=== PATIENT | male | born 1935 | race Hispanic/Latino ===

== ENCOUNTER 2018-06-21 06:15 | Emergency (ER) | payer OTHER ==
--- NOTE | 2018-06-21 06:40 | ER ---
Nurse's Notes [facility] Name: Giovany Heck Age: 83 yrs Sex: Male : 1935 Arrival Date: 06/21/2018 Time: 06:16 Bed 5 Private MD: Yordan Crowder Diagnosis: Encounter for general adult medical examination without abnormal findings Presentation: 06/21 06:20 Presenting complaint: Patient states: that his just a couple of hours fc ago and he is just not feeling right. Family states that they just want him checked out. Transition of care: patient was not received from another setting of care. Onset of symptoms was June 21, 2018 at 04:00. Risk Assessment: Do you want to hurt yourself or someone else? Patient reports no desire to harm self or others. Initial Sepsis Screen: Does the patient meet any 2 criteria? No. Patient's initial sepsis screen is negative. Does the patient have a suspected source of infection? No. Patient's initial sepsis screen is negative. Care prior to arrival: None. 06:20 Method Of Arrival: Wheelchair fc 06:20 Acuity: KWAKU 3 fc Triage Assessment: 06:20 General: Appears in no apparent distress. comfortable, Behavior is calm, cooperative, fc appropriate for age, flat, quiet. Pain: Denies pain. EENT: No deficits noted. Neuro: Level of Consciousness is awake, alert, obeys commands, Oriented to person, place, time, situation, Appropriate for age. Cardiovascular: Denies chest pain. Respiratory: Denies cough, shortness of breath. GI: No deficits noted. : No deficits noted. Derm: Skin is pink, warm \T\ dry. Musculoskeletal: Circulation, motion, and sensation intact. Capillary refill < 3 seconds, Range of motion: intact in all extremities. Historical: - Allergies: 06:33 No Known Allergies; fc - Home Meds: 06:33 cetirizine 10 mg oral tab 1 tab once daily [Active]; lisinopril-hydrochlorothiazide fc 20-12.5 mg Oral tab 1 tab once daily [Active]; magnesium oxide 400 mg Oral tab twice a day [Active]; atorvastatin 40 mg oral tab 1 tab once daily [Active]; glipizide 5 mg oral tab 1 tab 2 times per day [Active]; amlodipine 10 mg tab 1 tab once daily [Active]; aspirin 81 mg Oral chew 1 tab once daily [Active]; clopidogrel 75 mg Oral tab 1 tab once daily [Active]; - PMHx: 06:33 Myocardial infarction; Hypertension; High Cholesterol; Diabetes - NIDDM; fc - PSHx: 06:33 Cholecystectomy; eye surg; fc - Immunization history:: Last tetanus immunization: up to date Flu vaccine is up to date. - Social history:: Smoking status: Patient/guardian denies using tobacco, Patient/guardian denies using alcohol, street drugs. - Ebola Screening: : Patient negative for fever greater than or equal to 101.5 degrees Fahrenheit, and additional compatible Ebola Virus Disease symptoms Patient denies exposure to infectious person Patient denies travel to an Ebola-affected area in the 21 days before illness onset. Screenin:20 Abuse screen: Denies threats or abuse. Nutritional screening: No deficits noted. fc Tuberculosis screening: No symptoms or risk factors identified. Fall Risk Fall in past 12 months (25 points). No secondary diagnosis (0 pts). No IV (0 pts). Ambulatory Aid- Crutches/Cane/Walker (15 pts). Gait- Weak (10 pts.). Mental Status- Overestimates/Forgets Limitations (15 pts.). Total Levy Fall Scale indicates High Risk Score (45 or more points). Fall prevention measures have been instituted. Side Rails Up X 2 Placed Close to Nursing Station Frequent Obs/Assessments Occuring Family Present and informed to notify staff if the need to leave the bedside As available patient and family educated on Fall Prevention Program and Strategies. Assessment: 06:37 General: Appears in no apparent distress. comfortable, obese, Behavior is calm, fc cooperative, appropriate for age, flat, quiet. Pain: Denies pain. Neuro: Level of Consciousness is awake, alert, obeys commands, Oriented to person, place, time, situation, Appropriate for age. Cardiovascular: Denies chest pain, Heart tones S1 S2 Capillary refill < 3 seconds Rhythm is regular. Respiratory: Denies cough, shortness of breath. GI: No deficits noted. : No deficits noted. EENT: No deficits noted. Derm: Skin is pink, warm \T\ dry. Musculoskeletal: Circulation, motion, and sensation intact. Capillary refill < 3 seconds, Range of motion: intact in all extremities. 06:39 Reassessment: Florin SCOTT has gone in to examine pt and talk with family. Pt is pending discharge. Vital Signs: 06:20 BP 136 / 92; Pulse 87; Resp 18; Temp 97.5(O); Pulse Ox 98% on R/A; Weight 77.11 kg (R); fc Height 5 ft. 2 in. (157.48 cm) (R); Pain 0/10; 06:49 BP 144 / 70; Pulse 73; Resp 18; Pulse Ox 97% on R/A; Pain 0/10; fc 06:20 Body Mass Index 31.09 (77.11 kg, 157.48 cm) ED Course: 06:16 Patient arrived in ED. am2 06:17 Matty Shelton DO is Private Physician. am2 06:17 Yordan Crowder MD is Private Physician. am2 06:19 [facility] Mills [facility]. jr8 06:19 Kerwin Zhu MD is Attending Physician. [facility] 06:20 Arm band placed on Patient placed in an exam room, on a stretcher. 06:20 Patient has correct armband on for positive identification. Placed in gown. Bed in low fc position. Call light in reach. Side rails up X 1. desk monitor on. Pulse ox on. NIBP on. 06:20 No provider procedures requiring assistance completed. 06:29 Triage completed. 06:38 Yordan Crowder MD is Referral Physician. jr8 06:50 Patient did not have IV access during this emergency room visit. Administered Medications: No medications were administered Outcome: 06:39 Discharge ordered by . jr8 06:49 Discharged to home ambulatory, with family. 06:49 Condition: good 06:49 Discharge instructions given to patient, family, Instructed on discharge instructions, follow up and referral plans. Demonstrated understanding of instructions, follow-up care, Prescriptions given X none 06:50 Patient left the ED. Signatures: Wilda Chavarria, RN RN Florin Mills PA PA jr8 Jacqueline Mckeon am2
--- NOTE | 2018-06-21 06:40 | EDPHYS ---
Physician Documentation [facility] Name: Giovany Heck Age: 83 yrs Sex: Male : 1935 Arrival Date: 06/21/2018 Time: 06:16 Bed 5 Private MD: Yordan Crowder ED Physician Kerwin Zhu HPI: 06/21 06:49 This 83 yrs old Male presents to ER via Wheelchair with complaints of Doesn't jr8 Feel Right - post family . 06:49 of patient in the hospital early this morning. Family wanted patient kimberly checked out to make sure he is ok. History of OK in past. Patient did not have any symptoms while upstairs and continues to not have any symptoms currently . Severity of symptoms: At their worst the symptoms were very mild in the emergency department the symptoms are unchanged. The patient has not experienced similar symptoms in the past. The patient has not recently seen a physician. Historical: - Allergies: 06:33 No Known Allergies; fc - Home Meds: 06:33 cetirizine 10 mg oral tab 1 tab once daily [Active]; lisinopril-hydrochlorothiazide fc 20-12.5 mg Oral tab 1 tab once daily [Active]; magnesium oxide 400 mg Oral tab twice a day [Active]; atorvastatin 40 mg oral tab 1 tab once daily [Active]; glipizide 5 mg oral tab 1 tab 2 times per day [Active]; amlodipine 10 mg tab 1 tab once daily [Active]; aspirin 81 mg Oral chew 1 tab once daily [Active]; clopidogrel 75 mg Oral tab 1 tab once daily [Active]; - PMHx: 06:33 Myocardial infarction; Hypertension; High Cholesterol; Diabetes - NIDDM; fc - PSHx: 06:33 Cholecystectomy; eye surg; fc - Immunization history:: Last tetanus immunization: up to date Flu vaccine is up to date. - Social history:: Smoking status: Patient/guardian denies using tobacco, Patient/guardian denies using alcohol, street drugs. - Ebola Screening: : Patient negative for fever greater than or equal to 101.5 degrees Fahrenheit, and additional compatible Ebola Virus Disease symptoms Patient denies exposure to infectious person Patient denies travel to an Ebola-affected area in the 21 days before illness onset. ROS: 06:49 Eyes: Negative for injury, pain, redness, and discharge, ENT: Negative for injury, jr8 pain, and discharge, Neck: Negative for injury, pain, and swelling, Cardiovascular: Negative for chest pain, palpitations, and edema, Respiratory: Negative for shortness of breath, cough, wheezing, and pleuritic chest pain, Abdomen/GI: Negative for abdominal pain, nausea, vomiting, diarrhea, and constipation, Back: Negative for injury and pain, MS/Extremity: Negative for injury and deformity, Skin: Negative for injury, rash, and discoloration, Neuro: Negative for headache, weakness, numbness, tingling, and seizure. Exam: 06:49 Eyes: Pupils equal round and reactive to light, extra-ocular motions intact. Lids and jr8 lashes normal. Conjunctiva and sclera are non-icteric and not injected. Cornea within normal limits. Periorbital areas with no swelling, redness, or edema. ENT: Nares patent. No nasal discharge, no septal abnormalities noted. Tympanic membranes are normal and external auditory canals are clear. Oropharynx with no redness, swelling, or masses, exudates, or evidence of obstruction, uvula midline. Mucous membranes moist. Neck: Trachea midline, no thyromegaly or masses palpated, and no cervical lymphadenopathy. Supple, full range of motion without nuchal rigidity, or vertebral point tenderness. No Meningismus. Cardiovascular: Regular rate and rhythm with a normal S1 and S2. No gallops, murmurs, or rubs. Normal PMI, no JVD. No pulse deficits. Respiratory: Lungs have equal breath sounds bilaterally, clear to auscultation and percussion. No rales, rhonchi or wheezes noted. No increased work of breathing, no retractions or nasal flaring. Abdomen/GI: Soft, non-tender, with normal bowel sounds. No distension or tympany. No guarding or rebound. No evidence of tenderness throughout. Back: No spinal tenderness. No costovertebral tenderness. Full range of motion. Skin: Warm, dry with normal turgor. Normal color with no rashes, no lesions, and no evidence of cellulitis. MS/ Extremity: Pulses equal, no cyanosis. Neurovascular intact. Full, normal range of motion. Neuro: Awake and alert, GCS 15, oriented to person, place, time, and situation. Cranial nerves II-XII grossly intact. Motor strength 5/5 in all extremities. Sensory grossly intact. Cerebellar exam normal. Normal gait. 06:49 Eyes: Pupils equal round and reactive to light, extra-ocular motions intact. Lids and lashes normal. Conjunctiva and sclera are non-icteric and not injected. Cornea within normal limits. Periorbital areas with no swelling, redness, or edema. ENT: Nares patent. No nasal discharge, no septal abnormalities noted. Tympanic membranes are normal and external auditory canals are clear. Oropharynx with no redness, swelling, or masses, exudates, or evidence of obstruction, uvula midline. Mucous membranes moist. Neck: Trachea midline, no thyromegaly or masses palpated, and no cervical lymphadenopathy. Supple, full range of motion without nuchal rigidity, or vertebral point tenderness. No Meningismus. Cardiovascular: Regular rate with a normal S1 and S2. No gallops, murmurs, or rubs. Normal PMI, no JVD. No pulse deficits. Respiratory: Lungs have equal breath sounds bilaterally, clear to auscultation and percussion. No rales, rhonchi or wheezes noted. No increased work of breathing, no retractions or nasal flaring. Abdomen/GI: Soft, non-tender, with normal bowel sounds. No distension or tympany. No guarding or rebound. No evidence of tenderness throughout. Back: No spinal tenderness. No costovertebral tenderness. Full range of motion. Skin: Warm, dry with normal turgor. Normal color with no rashes, no lesions, and no evidence of cellulitis. MS/ Extremity: Pulses equal, no cyanosis. Neurovascular intact. Full, normal range of motion. Neuro: Awake and alert, GCS 15, oriented to person, place, time, and situation. Cranial nerves II-XII grossly intact. Motor strength 5/5 in all extremities. Sensory grossly intact. Cerebellar exam normal. Normal gait. Vital Signs: 06:20 BP 136 / 92; Pulse 87; Resp 18; Temp 97.5(O); Pulse Ox 98% on R/A; Weight 77.11 kg (R); fc Height 5 ft. 2 in. (157.48 cm) (R); Pain 0/10; 06:49 BP 144 / 70; Pulse 73; Resp 18; Pulse Ox 97% on R/A; Pain 0/10; fc 06:20 Body Mass Index 31.09 (77.11 kg, 157.48 cm) MDM: 06:21 Patient medically screened. [facility] 06:36 Data reviewed: vital signs, nurses notes, EKG, and as a result, I will discharge jr8 patient. Data interpreted: Pulse oximetry: on room air is 98 %. Interpretation: normal. Counseling: I had a detailed discussion with the patient and/or guardian regarding: the historical points, exam findings, and any diagnostic results supporting the discharge/admit diagnosis, the need for outpatient follow up, a family practitioner, to return to the emergency department if symptoms worsen or persist or if there are any questions or concerns that arise at home. ED course: Patient lost his this morning due to illness. Family wanted patient checked out. Other then emotional distress patient was without complaint before coming down to ED and while in ED. Gave family and patient s/s to look out for over the next several days. Close observation at home. If anything were to change or worsen to come back to ED . 06/21 06:36 Order name: EKG - Nurse/Tech; Complete Time: 06:37 jr8 Administered Medications: No medications were administered Disposition: 11:13 Co-signature as Attending Physician, Kerwin Zhu MD I agree with the assessment and [facility] plan of care. Disposition: 06/21/18 06:39 Discharged to Home. Impression: Encounter for general adult medical examination without abnormal findings. - Condition is Stable. - Discharge Instructions: Nonspecific Chest Pain, Health Maintenance, Male, Chest Pain Observation, Preventive Care 65 Years and Older, Male. - Medication Reconciliation Form, Thank You Letter, Antibiotic Education, Prescription Opioid Use form. - Follow up: Yordan Crowder MD; When: 1 - 2 days; Reason: Recheck today's complaints, Continuance of care, Re-evaluation by your physician. - Problem is new. - Symptoms are unchanged. Signatures: Kerwin Zhu MD MD cha Chretien, Felicia, RN RN Florin Mills PA PA jr8 Corrections: (The following items were deleted from the chart) 06:50 06:39 06/21/2018 06:39 Discharged to Home. Impression: Encounter for general adult medical examination without abnormal findings. Condition is Stable. Forms are Medication Reconciliation Form, Thank You Letter, Antibiotic Education, Prescription Opioid Use. Follow up: Yordan Crowder; When: 1 - 2 days; Reason: Recheck today's complaints, Continuance of care, Re-evaluation by your physician. Problem is new. Symptoms are unchanged. jr8
[2018-06-21 06:59] VITALS: BP 144/70; TEMP 97.5; O2SAT 97
--- NOTE | 2018-06-21 12:35 | EKG ---
Test Date: 2018-06-21 Test Time: 06:27:48 Sap Bpc Architect: NATACHA MEASUREMENT RESULTS: Intervals: Rate: 72 NM: 216 QRSD: 158 QT: 448 QTc: 490 Alna: P: 55 NM: 216 QRS: -27 T: 128 INTERPRETIVE STATEMENTS: Sinus rhythm with marked sinus arrhythmia with 1st degree AV block Left bundle branch block Abnormal ECG Compared to ECG 08/13/2016 02:23:06 Atrial premature complex(es) no longer present Left-axis deviation no longer present Electronically Signed On 06-21-18 12:33:50 [facility] [employer] by Evin Donato
== END 2018-06-21 06:50 | disposition home or self-care (01) ==
LOC: ER 06:15
DX: Z00.00 Encounter for general adult medical examination without abnormal findings (principal); I10 Essential (primary) hypertension; E11.9 Type 2 diabetes mellitus without complications; I25.2 Old myocardial infarction; E78.00 Pure hypercholesterolemia, unspecified; Z79.82 Long term (current) use of aspirin
CPT/HCPCS: 93005; 99284

== ENCOUNTER 2019-01-01 12:13 | Observation (INO) | payer OTHER ==
--- OUTSIDE RECORDS SUMMARY | 2019-01-01 12:15 | XMS REPORT | Clinical Summary ---
:[address] [facility] Address [address] [place] [address] Care Team Providers Name Role Phone Yordan Crowder Brandonherve Primary Care Provider Allergies No Known Allergies Medications Medication Sig Dispensed Refills Start Date End Date Status clopidogrel (PLAVIX) Take 75 mg by 0 Active 75 mg tablet mouth daily. magnesium oxide Take 400 mg by 0 Active (MAG-OX) 400 mg tablet mouth 2 (two) times daily. amLODIPine (NORVASC) Take 10 mg by 0 Active 10 MG tablet mouth daily. aspirin 81 MG EC Take 81 mg by 0 Active tablet mouth nightly. atorvastatin (LIPITOR) Take 40 mg by 0 Active 40 MG tablet mouth daily. glipiZIDE (GLUCOTROL) Take 5 mg by mouth 0 Active 5 MG tablet 2 (two) times daily before meals. lisinopril-hydroCHLORO Take 1 tablet by 0 Active thiazide mouth daily. (PRINZIDE,ZESTORETIC) 20-12.5 mg per tablet nitroglycerin Place 0.3 mg under 0 Active (NITROSTAT) 0.3 MG SL the tongue every 5 tablet (five) minutes as needed for Chest pain Put 1 pill under tongue every 5min as needed for chest pain.No more than 3 doses in 15min.Call 911 if pain is unrelieved 5min after 1st dose . nebivolol 20 mg Tab Take 1 tablet (20 90 tablet 0 08/25/2016 Active mg total) by mouth daily. Active Problems Problem Noted Date Cirrhosis 08/22/2016 Acute gangrenous cholecystitis 08/22/2016 Obesity 08/22/2016 Atrial tachycardia 08/22/2016 Diastolic CHF 08/19/2016 CAD (coronary artery disease) 08/19/2016 Acute cholecystitis 08/18/2016 Social History Tobacco Use Types Packs/Day Years Used Date Never Smoker Sex Assigned at Date Recorded Not on file Job Start Date Occupation Industry Not on file Not on file Not on file Travel History Travel Start Travel End No recent travel history available. Last Filed Vital Signs Not on file Plan of Treatment Not on file Results Not on fileafter 12/31/2017 Insurance Payer Benefit Plan / Group Subscriber ID Type Phone Address [employer] xxxxxxxxx Maps Contracted Advance Directives For more information, please contact:[address] [phone] Code Status Date Activated Date Inactivated Comments Full Code 08/18/2016 10:20 PM 08/25/2016 5:19 PM This code status was determined by: Patient
--- OUTSIDE RECORDS SUMMARY | 2019-01-01 12:17 | XMS REPORT ---
:1935 Author Organization [facility] Address [address] [place] [address] Dr. Montalvo [address] [place] [id number] Care Team Providers Name Role Phone JOANA SNOWDEN Unavailable Unavailable Problems This patient has no known problems. Allergies, Adverse Reactions, Alerts This patient has no known allergies or adverse reactions. Medications This patient has no known medications. Results Test Description Test Time Test Comments Text Results Atomic Results Result Comments AFB CULTURE + SMEAR 2016-10-05 17:20:00 Test Item Value Reference Range Comments CULTURE (BEAKER) (test tutv=6732) No acid-fast bacilli isolated in 42 days AFB SMEAR (BEAKER) (test jhtw=693) No acid fast bacilli seen FUNGUS CULTURE + [id number] 23:18:00 Test Item Value Reference Range Comments CULTURE (BEAKER) (test No fungus isolated in 28 days ovlr=9528) FUNGUS SMEAR (BEAKER) (test No fungi seen qcls=8844) FUNGUS CULTURE + [id number] 23:18:00 Test Item Value Reference Range Comments CULTURE (BEAKER) (test No fungus isolated in 28 days mffv=3452) FUNGUS SMEAR (BEAKER) (test No fungi seen axjg=2918) ANAEROBIC [id number] 05:12:00 Test Item Value Reference Range Comments CULTURE (BEAKER) (test ezyt=2463) No anaerobes isolated ANAEROBIC [id number] 05:12:00 Test Item Value Reference Range Comments CULTURE (BEAKER) (test ommz=3627) No anaerobes isolated BLOOD [id number] 15:51:00 Test Item Value Reference Range Comments CULTURE (BEAKER) (test kipv=0612) No growth in 5 days BLOOD [id number] 15:51:00 Test Item Value Reference Range Comments CULTURE (BEAKER) (test gymu=9823) No growth in 5 days SURGICALLY OBTAINED CULTURE + GRAM [id number] 15:09:00 Test Item Value Reference Range Comments CULTURE (BEAKER) (test No growth guzx=7464) GRAM STAIN RESULT (BEAKER) 1+ WBCs (test ijsp=7050) GRAM STAIN RESULT (BEAKER) 1+ gram positive cocci in (test tcqr=21097) chains and pairs SURGICALLY OBTAINED CULTURE + GRAM [id number] 15:07:00 Test Item Value Reference Range Comments CULTURE (BEAKER) (test No growth eiuf=7106) GRAM STAIN RESULT (BEAKER) 1+ WBCs (test ejgt=2033) GRAM STAIN RESULT (BEAKER) 1+ gram positive cocci in (test mnbg=06105) chains POCT-GLUCOSE [id number] 11:50:00 Test Item Value Reference Range Comments POC-GLUCOSE METER (BEAKER) 226 mg/dL 70-110 TESTED AT [facility] [address] (test isnm=2187) [facility] [address] TISSUE [id number] 09:30:00Surgical Pathology Report Case: [id number] Authorizing Provider: Kwaku Sánchez MD Ordering Provider: Kwaku Sánchez MD OrderingLocation: [facility] Collected: 08/22/2016 1142 Service Pathologist: Otoniel Larsen MD Received: 08/23/2016 0821 Specimens: A) - Gallbladder B) - Biopsy, Liver, RIGHT HEPATIC LOBE A. GALLBLADDER, CHOLECYSTECTOMY: - ACUTE AND CHRONIC CHOLECYSTITIS - CHOLELITHIASISB. LIVER, BIOPSY: - FIBROSIS, STAGE 3-4 - MILD STEATOSIS, MACROVESICULAR TYPE - NO DEFINITIVE BALLOONING IDENTIFIED - MILD LYMPHOPLASMOCYTIC SEPTAL INFLAMMATION WITH MINIMAL INTERFACE INFLAMMATION - MILD INCREASE IN HEPATOCYTE IRON - NEGATIVE FORCARCINOMA Signing Pathologist Direct Phone Line: [phone] cholecystitisA. GallbladderB. Right hepatic lobe liver biopsySpecimen is received in two containers of formalinboth labeled with the patient's information.Specimen A: Labeled "gallbladder" consists of an intact gallbladder measuring 7.6 x 5 cm with a gallbladder wall thickness up to 0.6 cm. The gallbladder lumen is filled with green thick fluid and multiple dark- green smooth stones measuring up to 0.5 cm. The mucosa is loyd-red and velvety with focal areas of ulceration. There are no distinct masses or lymph node tissue present.Section code: A1, margin en face; A2, gallbladder wall.Specimen B : Labeled "right hepatic lobe liver biopsy" consists of two liver core biopsies measuring 1.8 and 1.9 cm in length, submitted entirely in B1. CG/Nelda. Performed.B. Section shows liver parenchyma with bridging fibrosis and rare regenerative nodule formation as seen by trichrome/reticulin stains (stage 3-4) . The portal tracts have septal inflammation with mild interface inflammation, composed of lymphocytes and rare plasma cells. There is mild macrovesicular steatosis without ballooning degeneration or Nancy Denk hyaline. No hyaline globules are seen on PAS with diastase stain. Iron stain shows mildly increased staining (1+) in the hepatocytes and in the kupffer cells. No dysplastic nodules or carcinoma is seen.POCT-GLUCOSE [id number] 08:08:00 Test Item Value Reference Range Comments POC-GLUCOSE METER (BEAKER) 142 mg/dL 70-110 TESTED AT [facility] [address] [facility] (test rdhg=8574) [facility] [address] URIC [id number] 06:15:00 Test Item Value Reference Range Comments URIC ACID (BEAKER) (test bwtt=231) 5.1 mg/dL 2.6-7.2 [id number] 05:37:00 Test Item Value Reference Range Comments PHOSPHORUS (BEAKER) (test gsno=360) 3.2 mg/dL 2.3-4.7 [id number] 05:37:00 Test Item Value Reference Range Comments MAGNESIUM (BEAKER) (test qouk=480) 1.7 mg/dL 1.6-2.6 COMPREHENSIVE METABOLIC [id number] 05:37:00 Test Item Value Reference Range Comments TOTAL PROTEIN (BEAKER) 5.9 gm/dL 6.0-8.3 (test zfda=758) ALBUMIN (BEAKER) (test 2.8 g/dL 3.5-5.0 xkrk=4502) ALKALINE PHOSPHATASE 74 U/L 40-150 (BEAKER) (test mrwc=967) BILIRUBIN TOTAL (BEAKER) 0.5 mg/dL 0.2-1.2 (test hxpx=663) SODIUM (BEAKER) (test 140 meq/L 136-145 kwxq=413) POTASSIUM (BEAKER) (test 3.4 meq/L 3.5-5.1 ivkf=557) CHLORIDE (BEAKER) (test 105 meq/L 98-107 rfnw=276) CO2 (BEAKER) (test 25 meq/L 22-29 hqvr=000) BLOOD UREA NITROGEN 19 mg/dL 7-21 (BEAKER) (test kczl=090) CREATININE (BEAKER) (test 1.43 mg/dL 0.57-1.25 gugo=969) GLUCOSE RANDOM (BEAKER) 134 mg/dL 70-105 (test kooe=872) CALCIUM (BEAKER) (test 8.7 mg/dL 8.4-10.2 clmc=594) AST (SGOT) (BEAKER) (test 39 U/L 5-34 gnph=511) ALT (SGPT) (BEAKER) (test 35 U/L 6-55 wzuc=437) EGFR (BEAKER) (test 48 mL/min/1.73 sq m ESTIMATED GFR IS NOT erur=5654) ACCURATE CREATININE CLEARANCE IN PREDICTING GLOMERULAR FILTRATION RATE. ESTIMATED GFR IS NOT APPLICABLE FOR DIALYSIS PATIENTS. CBC W/PLT COUNT & AUTO [id number] 05:19:00 Test Item Value Reference Range Comments WHITE BLOOD CELL COUNT (BEAKER) (test ivio=501) 12.0 K/ L 4.0-10.0 RED BLOOD CELL COUNT (BEAKER) (test fjpw=084) 4.22 M/ L 4.20-5.80 HEMOGLOBIN (BEAKER) (test svdc=417) 12.2 GM/DL 13.0-16.8 HEMATOCRIT (BEAKER) (test yapl=922) 37.5 % 40.0-50.0 MEAN CORPUSCULAR VOLUME (BEAKER) (test jyyo=747) 88.9 fL 82.0-98.0 MEAN CORPUSCULAR HEMOGLOBIN (BEAKER) (test 29.0 pg 27.0-33.0 nvjp=687) MEAN CORPUSCULAR HEMOGLOBIN CONC (BEAKER) (test 32.6 GM/DL 32.0-36.0 nbtq=023) RED CELL DISTRIBUTION WIDTH (BEAKER) (test 13.2 % 10.3-14.2 ymoz=155) PLATELET COUNT (BEAKER) (test bpug=530) 379 K/CU MM 150-430 MEAN PLATELET VOLUME (BEAKER) (test ueyt=854) 7.1 fL 6.5-10.5 NUCLEATED RED BLOOD CELLS (BEAKER) (test 0 /100 WBC 0-0 xuqe=121) NEUTROPHILS RELATIVE PERCENT (BEAKER) (test 83 % xbjv=094) LYMPHOCYTES RELATIVE PERCENT (BEAKER) (test 9 % fycg=235) MONOCYTES RELATIVE PERCENT (BEAKER) (test 5 % jyqw=569) EOSINOPHILS RELATIVE PERCENT (BEAKER) (test 3 % gubr=609) BASOPHILS RELATIVE PERCENT (BEAKER) (test 0 % ugmb=768) NEUTROPHILS ABSOLUTE COUNT (BEAKER) (test 9.97 K/ L 1.80-8.00 uzid=109) LYMPHOCYTES ABSOLUTE COUNT (BEAKER) (test 1.06 K/ L 1.48-4.50 waws=236) MONOCYTES ABSOLUTE COUNT (BEAKER) (test 0.63 K/ L 0.00-1.30 zyah=554) EOSINOPHILS ABSOLUTE COUNT (BEAKER) (test 0.31 K/ L 0.00-0.50 ripj=352) BASOPHILS ABSOLUTE COUNT (BEAKER) (test 0.03 K/ L 0.00-0.20 iign=533) 0.00POCT-GLUCOSE [id number] 21:05:00 Test Item Value Reference Range Comments POC-GLUCOSE METER (BEAKER) 173 mg/dL 70-110 TESTED AT [facility] [address] [facility] (test fcqo=5565) [facility] [address] URINALYSIS W/ [id number] 16:26:00 Test Item Value Reference Range Comments COLOR (BEAKER) (test nbjl=479) Light Yellow CLARITY (BEAKER) (test enrn=287) Clear SPECIFIC GRAVITY UA (BEAKER) (test uyzg=463) 1.006 1.001-1.035 PH UA (BEAKER) (test dzsx=965) 6.0 5.0-8.0 PROTEIN UA (BEAKER) (test txfq=121) Negative Negative GLUCOSE UA (BEAKER) (test inte=272) Negative Negative KETONES UA (BEAKER) (test fkrg=735) Negative Negative BILIRUBIN UA (BEAKER) (test brvr=170) Negative Negative BLOOD UA (BEAKER) (test zhsg=005) Negative Negative NITRITE UA (BEAKER) (test mxud=814) Negative Negative LEUKOCYTE ESTERASE UA (BEAKER) (test yrpd=147) Negative Negative UROBILINOGEN UA (BEAKER) (test xjmf=811) 0.2 mg/dL 0.2-1.0 RBC UA (BEAKER) (test ywab=836) 1 /HPF WBC UA (BEAKER) (test nsfc=030) 1 /HPF SOURCE(BEAKER) (test fuqg=3713) Urine, Voided CREATININE, RANDOM [id number] 16:09:00 Test Item Value Reference Range Comments CREATININE URINE (BEAKER) (test eoez=397) 32.5 mg/dL Reference Range: No NormalsPROTEIN, RANDOM [id number] 16:09:00 Test Item Value Reference Range Comments PROTEIN, URINE (BEAKER) (test eclj=2530) 7 mg/dL 0-14 SODIUM, RANDOM [id number] 16:09:00 Test Item Value Reference Range Comments SODIUM URINE (BEAKER) (test pztm=460) 83 meq/L Reference Range: No NormalsBASIC METABOLIC [id number] 14:13:00 Test Item Value Reference Range Comments SODIUM (BEAKER) (test 142 meq/L 136-145 ejgm=649) POTASSIUM (BEAKER) (test 3.7 meq/L 3.5-5.1 nzkm=346) CHLORIDE (BEAKER) (test 107 meq/L 98-107 qxvz=184) CO2 (BEAKER) (test 26 meq/L 22-29 ogja=143) BLOOD UREA NITROGEN 21 mg/dL 7-21 (BEAKER) (test ivbm=508) CREATININE (BEAKER) (test 1.61 mg/dL 0.57-1.25 mqyd=364) GLUCOSE RANDOM (BEAKER) 155 mg/dL 70-105 (test gmkr=023) CALCIUM (BEAKER) (test 8.7 mg/dL 8.4-10.2 qhbj=928) EGFR (BEAKER) (test 41 mL/min/1.73 sq m ESTIMATED GFR IS NOT elbp=2734) ACCURATE CREATININE CLEARANCE IN PREDICTING GLOMERULAR FILTRATION RATE. ESTIMATED GFR IS NOT APPLICABLE FOR DIALYSIS PATIENTS. BLOOD [id number] 13:27:00 Test Item Value Reference Range Comments CULTURE (BEAKER) (test abnu=4721) No growth in 5 days BLOOD [id number] 13:27:00 Test Item Value Reference Range Comments CULTURE (BEAKER) (test wxvf=5445) No growth in 5 days POCT-GLUCOSE [id number] 12:25:00 Test Item Value Reference Range Comments POC-GLUCOSE METER (AKER) 203 mg/dL 70-110 TESTED AT [address] (test jfju=4533) [place] [address] POCT-GLUCOSE [id number] 08:54:00 Test Item Value Reference Range Comments POC-GLUCOSE METER (BEAKER) 146 mg/dL 70-110 TESTED AT [address] (test trvn=9497) [place] [address] POCT-GLUCOSE [id number] 05:23:00 Test Item Value Reference Range Comments POC-GLUCOSE METER (BEAKER) 147 mg/dL 70-110 TESTED AT [address] (test cdvw=5976) [place] [address] TROPONIN [id number] 04:19:00 Test Item Value Reference Range Comments TROPONIN I (AKER) (test xcap=230) 0.11 ng/mL 0.00-0.03 Effective 03/05/2014: Reference Range ChangeNew: 0.00-0.03 Previous 0.00- 0.15Troponin I (TnI) levels must be interpreted in the context of the presenting symptoms and the clinical findings. Elevated TnI levels indicate myocardial damage, but are not specific for ischemic heart disease. Elevated TnI levels are seen in patients with other cardiac conditions (including myocarditis and congestive heartfailure), and slight TnI elevations occur in patients with other conditions, including sepsis, renalfailure, acidosis, acute neurological disease, and persistent tachyarrhythmia.CBC (HEMOGRAM ONLY) 04:19:00 Test Item Value Reference Range Comments WHITE BLOOD CELL COUNT (BEAKER) (test jqaj=505) 16.1 K/ L 4.0-10.0 RED BLOOD CELL COUNT (BEAKER) (test npgw=765) 4.12 M/ L 4.20-5.80 HEMOGLOBIN (BEAKER) (test nnkg=747) 12.1 GM/DL 13.0-16.8 HEMATOCRIT (BEAKER) (test uvbv=858) 36.0 % 40.0-50.0 MEAN CORPUSCULAR VOLUME (BEAKER) (test wuco=944) 87.4 fL 82.0-98.0 MEAN CORPUSCULAR HEMOGLOBIN (BEAKER) (test 29.2 pg 27.0-33.0 mrzp=875) MEAN CORPUSCULAR HEMOGLOBIN CONC (BEAKER) (test 33.5 GM/DL 32.0-36.0 vtbm=605) RED CELL DISTRIBUTION WIDTH (BEAKER) (test 14.3 % 10.3-14.2 wxem=675) PLATELET COUNT (BEAKER) (test nsil=297) 390 K/CU MM 150-430 MEAN PLATELET VOLUME (BEAKER) (test qpmj=205) 7.0 fL 6.5-10.5 NUCLEATED RED BLOOD CELLS (BEAKER) (test 0 /100 WBC 0-0 pzvu=607) 0.000.540.000.000.[id number] 04:11:00 Test Item Value Reference Range Comments PHOSPHORUS (BEAKER) (test byzb=589) 2.1 mg/dL 2.3-4.7 [id number] 04:11:00 Test Item Value Reference Range Comments MAGNESIUM (BEAKER) (test rydv=203) 2.4 mg/dL 1.6-2.6 BASIC METABOLIC [id number] 04:11:00 Test Item Value Reference Range Comments SODIUM (BEAKER) (test 140 meq/L 136-145 icuj=444) POTASSIUM (BEAKER) (test 3.9 meq/L 3.5-5.1 jbxd=403) CHLORIDE (BEAKER) (test 106 meq/L 98-107 hotx=288) CO2 (BEAKER) (test 26 meq/L 22-29 mbfh=200) BLOOD UREA NITROGEN 22 mg/dL 7-21 (BEAKER) (test jsja=067) CREATININE (BEAKER) (test 1.69 mg/dL 0.57-1.25 tiqe=646) GLUCOSE RANDOM (BEAKER) 144 mg/dL 70-105 (test nzcw=783) CALCIUM (BEAKER) (test 8.5 mg/dL 8.4-10.2 qgsu=498) EGFR (BEAKER) (test 39 mL/min/1.73 sq m ESTIMATED GFR IS NOT lyeh=8440) ACCURATE CREATININE CLEARANCE IN PREDICTING GLOMERULAR FILTRATION RATE. ESTIMATED GFR IS NOT APPLICABLE FOR DIALYSIS PATIENTS. POCT-GLUCOSE [id number] 00:24:00 Test Item Value Reference Range Comments POC-GLUCOSE METER (BEAKER) 212 mg/dL 70-110 TESTED AT [address] (test imsa=3297) [place] [address] TROPONIN [id number] 18:52:00 Test Item Value Reference Range Comments TROPONIN I (BEAKER) (test mlal=223) 0.13 ng/mL 0.00-0.03 Effective 03/05/2014: Reference Range ChangeNew: 0.00-0.03 Previous 0.00- 0.15Troponin I (TnI) levels must be interpreted in the context of the presenting symptoms and the clinical findings. Elevated TnI levels indicate myocardial damage, but are not specific for ischemic heart disease. Elevated TnI levels are seen in patients with other cardiac conditions (including myocarditis and congestive heartfailure), and slight TnI elevations occur in patients with other conditions, including sepsis, renalfailure, acidosis, acute neurological disease, and persistent tachyarrhythmia.POCT-GLUCOSE [id number] 16:34:00 Test Item Value Reference Range Comments POC-GLUCOSE METER (BEAKER) 228 mg/dL 70-110 TESTED AT [address] (test fvrh=6139) [place] [address] SPIN/CONCENTRATION [id number] 16:03:00 Test Item Value Reference Range Comments CONCENTRATION CHARGED (BEAKER) (test tivx=9410) Done TROPONIN [id number] 15:38:00 Test Item Value Reference Range Comments TROPONIN I (BEAKER) (test dcmy=823) 0.19 ng/mL 0.00-0.03 Effective 03/05/2014: Reference Range ChangeNew: 0.00-0.03 Previous 0.00- 0.15Troponin I (TnI) levels must be interpreted in the context of the presenting symptoms and the clinical findings. Elevated TnI levels indicate myocardial damage, but are not specific for ischemic heart disease. Elevated TnI levels are seen in patients with other cardiac conditions (including myocarditis and congestive heartfailure), and slight TnI elevations occur in patients with other conditions, including sepsis, renalfailure, acidosis, acute neurological disease, and persistent tachyarrhythmia.[id number] 13:44: 00 Test Item Value Reference Range Comments MAGNESIUM (BEAKER) (test cuud=825) 1.2 mg/dL 1.6-2.6 POCT-GLUCOSE [id number] 12:40:00 Test Item Value Reference Range Comments POC-GLUCOSE METER (BEAKER) 150 mg/dL 70-110 TESTED AT [facility] [address] [facility] (test pfxs=8225) [facility] [address] URINE [id number] 11:31:00 Test Item Value Reference Range Comments CULTURE (BEAKER) (test owqj=2272) No growth TROPONIN [id number] 10:30:00 Test Item Value Reference Range Comments TROPONIN I (BEAKER) (test owtt=320) 0.22 ng/mL 0.00-0.03 Effective 03/05/2014: Reference Range ChangeNew: 0.00-0.03 Previous 0.00- 0.15Troponin I (TnI) levels must be interpreted in the context of the presenting symptoms and the clinical findings. Elevated TnI levels indicate myocardial damage, but are not specific for ischemic heart disease. Elevated TnI levels are seen in patients with other cardiac conditions (including myocarditis and congestive heartfailure), and slight TnI elevations occur in patients with other conditions, including sepsis, renalfailure, acidosis, acute neurological disease, and persistent tachyarrhythmia.CREATINE KINASE (CK), TOTAL AND [id number] 09:38:00 Test Item Value Reference Range Comments CREATINE KINASE TOTAL (BEAKER) (test ijjy=488) 65 U/L 29-200 CREATINE KINASE-MB (BEAKER) (test hohh=267) 3.8 ng/mL 0.0-6.6 CREATINE KINASE-MB INDEX (BEAKER) (test tlss=193) 5.8 % Effective 03/05/2014: CK-MB Reference Range ChangeNew: 0.0-6.6 Previous: 0.0- 4.9CK-MB Reference Range:<6.7 Normal6.7-10.0 Borderline>10.0 AbnormalVANCOMYCIN LEVEL, [id number] 09:29:00 Test Item Value Reference Range Comments VANCOMYCIN TROUGH (BEAKER) (test tyxk=113) 19.1 ug/mL 10.0-20.0 30 mins prior to 4th dose. Hold next vanc dose if levels greater than 20.POCT- GLUCOSE [id number] 06:24:00 Test Item Value Reference Range Comments POC-GLUCOSE METER (BEAKER) 120 mg/dL 70-110 TESTED AT [facility] [address] [facility] (test bvli=7426) [facility] [address] [id number] 04:31:00 Test Item Value Reference Range Comments PHOSPHORUS (BEAKER) (test rzoi=317) 3.4 mg/dL 2.3-4.7 [id number] 04:31:00 Test Item Value Reference Range Comments MAGNESIUM (BEAKER) (test ioms=754) 1.2 mg/dL 1.6-2.6 BASIC METABOLIC [id number] 04:31:00 Test Item Value Reference Range Comments SODIUM (BEAKER) (test 141 meq/L 136-145 hvvr=399) POTASSIUM (BEAKER) (test 4.1 meq/L 3.5-5.1 nlon=445) CHLORIDE (BEAKER) (test 108 meq/L 98-107 xhqw=669) CO2 (BEAKER) (test 25 meq/L 22-29 pbct=476) BLOOD UREA NITROGEN 19 mg/dL 7-21 (BEAKER) (test dnsd=569) CREATININE (BEAKER) (test 1.12 mg/dL 0.57-1.25 snvx=965) GLUCOSE RANDOM (BEAKER) 132 mg/dL 70-105 (test zrta=051) CALCIUM (BEAKER) (test 8.3 mg/dL 8.4-10.2 lolb=737) EGFR (BEAKER) (test 63 mL/min/1.73 sq m ESTIMATED GFR IS NOT ogih=7149) ACCURATE CREATININE CLEARANCE IN PREDICTING GLOMERULAR FILTRATION RATE. ESTIMATED GFR IS NOT APPLICABLE FOR DIALYSIS PATIENTS. HEPATIC FUNCTION [id number] 04:31:00 Test Item Value Reference Range Comments TOTAL PROTEIN (BEAKER) (test mrcq=254) 5.4 gm/dL 6.0-8.3 ALBUMIN (BEAKER) (test eysd=1066) 2.6 g/dL 3.5-5.0 BILIRUBIN TOTAL (BEAKER) (test ptkk=438) 0.7 mg/dL 0.2-1.2 BILIRUBIN DIRECT (BEAKER) (test pqks=463) 0.4 mg/dL 0.1-0.5 ALKALINE PHOSPHATASE (BEAKER) (test mtju=311) 55 U/L 40-150 AST (SGOT) (BEAKER) (test ogpi=270) 93 U/L 5-34 ALT (SGPT) (BEAKER) (test uksg=100) 43 U/L 6-55 CBC (HEMOGRAM ONLY)2016-08-23 03:52:00 Test Item Value Reference Range Comments WHITE BLOOD CELL COUNT (BEAKER) (test eldo=292) 16.0 K/ L 4.0-10.0 RED BLOOD CELL COUNT (BEAKER) (test vrvy=490) 3.93 M/ L 4.20-5.80 HEMOGLOBIN (BEAKER) (test vous=448) 11.9 GM/DL 13.0-16.8 HEMATOCRIT (BEAKER) (test xmtw=104) 34.9 % 40.0-50.0 MEAN CORPUSCULAR VOLUME (BEAKER) (test hovw=675) 88.9 fL 82.0-98.0 MEAN CORPUSCULAR HEMOGLOBIN (BEAKER) (test 30.2 pg 27.0-33.0 trrm=505) MEAN CORPUSCULAR HEMOGLOBIN CONC (BEAKER) (test 34.0 GM/DL 32.0-36.0 qodw=675) RED CELL DISTRIBUTION WIDTH (BEAKER) (test 13.5 % 10.3-14.2 bhpn=407) PLATELET COUNT (BEAKER) (test lplk=636) 329 K/CU MM 150-430 MEAN PLATELET VOLUME (BEAKER) (test lsfu=222) 6.9 fL 6.5-10.5 NUCLEATED RED BLOOD CELLS (BEAKER) (test 0 /100 WBC 0-0 juzu=066) 0.00BODY FLUID CULTURE + GRAM [id number] 01:04:00 Test Item Value Reference Range Comments CULTURE ([facility]) (test No growth jbhr=3714) GRAM STAIN RESULT (AKER) 4+ WBCs (test cgce=0548) GRAM STAIN RESULT (AKER) <1+ gram positive coccobacilli (test izny=62801) CREATINE KINASE (CK), TOTAL AND [id number] 00:15:00 Test Item Value Reference Range Comments CREATINE KINASE TOTAL (BEAKER) (test qbgk=177) 59 U/L 29-200 CREATINE KINASE-MB (BEAKER) (test hnae=190) 2.1 ng/mL 0.0-6.6 CREATINE KINASE-MB INDEX (BEAKER) (test dqoz=717) 3.6 % Effective 03/05/2014: CK-MB Reference Range ChangeNew: 0.0-6.6 Previous: 0.0- 4.9CK-MB Reference Range:<6.7 Normal6.7-10.0 Borderline>10.0 AbnormalTROPONIN [id number] 00:15:00 Test Item Value Reference Range Comments TROPONIN I (BEAKER) (test efqp=861) 0.06 ng/mL 0.00-0.03 Effective 03/05/2014: Reference Range ChangeNew: 0.00-0.03 Previous 0.00- 0.15Troponin I (TnI) levels must be interpreted in the context of the presenting symptoms and the clinical findings. Elevated TnI levels indicate myocardial damage, but are not specific for ischemic heart disease. Elevated TnI levels are seen in patients with other cardiac conditions (including myocarditis and congestive heartfailure), and slight TnI elevations occur in patients with other conditions, including sepsis, renalfailure, acidosis, acute neurological disease, and persistent tachyarrhythmia.POCT-GLUCOSE [id number] 23:43:00 Test Item Value Reference Range Comments POC-GLUCOSE METER ([facility]) 169 mg/dL 70-110 TESTED AT [facility] [address] [facility] (test dvnu=3546) [facility] [address] CBC W/PLT COUNT & AUTO [id number] 20:45:00 Test Item Value Reference Range Comments WHITE BLOOD CELL COUNT (AKER) (test cqcc=767) 22.2 K/ L 4.0-10.0 RED BLOOD CELL COUNT (BEAKER) (test qffy=300) 4.25 M/ L 4.20-5.80 HEMOGLOBIN (BEAKER) (test rfdv=147) 12.7 GM/DL 13.0-16.8 HEMATOCRIT (BEAKER) (test uxra=255) 37.3 % 40.0-50.0 MEAN CORPUSCULAR VOLUME (BEAKER) (test ddbz=253) 87.8 fL 82.0-98.0 MEAN CORPUSCULAR HEMOGLOBIN (BEAKER) (test 30.0 pg 27.0-33.0 lias=525) MEAN CORPUSCULAR HEMOGLOBIN CONC (BEAKER) (test 34.2 GM/DL 32.0-36.0 pbpd=681) RED CELL DISTRIBUTION WIDTH (BEAKER) (test 14.5 % 10.3-14.2 nrlj=060) PLATELET COUNT (BEAKER) (test akhq=657) 345 K/CU MM 150-430 MEAN PLATELET VOLUME (BEAKER) (test ayap=126) 7.2 fL 6.5-10.5 NUCLEATED RED BLOOD CELLS (BEAKER) (test 0 /100 WBC 0-0 eudr=579) [id number](MANUAL DIFFERENTIAL)2016-08-22 20:45:00 Test Item Value Reference Range Comments NEUTROPHILS - REL (DIFF) (BEAKER) (test 92 % ajia=1315) LYMPHOCYTES - REL (DIFF) (BEAKER) (test 2 % coqi=0948) MONOCYTES - REL (DIFF) (BEAKER) (test kola=6985) 2 % BANDS - REL (DIFF) (BEAKER) (test kskn=7981) 4 % 0-10 NEUTROPHILS - ABS (DIFF) (BEAKER) (test 20.42 K/ L 1.80-8.00 zvkb=9170) LYMPHOCYTES - ABS (DIFF) (BEAKER) (test 0.44 K/ L 1.48-4.50 jsij=9570) MONOCYTES - ABS (DIFF) (BEAKER) (test hwxr=0613) 0.44 K/ L 0.00-1.30 BANDS-ABS (DIFF) (BEAKER) (test xflk=3169) 0.9 K/ L 0.0-0.8 TOTAL COUNTED (BEAKER) (test gamg=1888) 100 BANDS + SEGMENTED NEUTROPHILS (BEAKER) (test 21.31 svdl=0586) WBC MORPHOLOGY (BEAKER) (test rvrx=795) Normal PLT MORPHOLOGY (BEAKER) (test gfde=149) Normal RBC MORPHOLOGY (BEAKER) (test rtca=361) Normal CREATINE KINASE (CK), TOTAL AND [id number] 20:40:00 Test Item Value Reference Range Comments CREATINE KINASE TOTAL (BEAKER) (test fkow=979) 65 U/L 29-200 CREATINE KINASE-MB (BEAKER) (test gngt=680) 2.3 ng/mL 0.0-6.6 CREATINE KINASE-MB INDEX (BEAKER) (test jdss=372) 3.5 % Effective 03/05/2014: CK-MB Reference Range ChangeNew: 0.0-6.6 Previous: 0.0- 4.9CK-MB Reference Range:<6.7 Normal6.7-10.0 Borderline>10.0 AbnormalTROPONIN [id number] 20:40:00 Test Item Value Reference Range Comments TROPONIN I (BEAKER) (test cbic=783) 0.02 ng/mL 0.00-0.03 Effective 03/05/2014: Reference Range ChangeNew: 0.00-0.03 Previous 0.00- 0.15Troponin I (TnI) levels must be interpreted in the context of the presenting symptoms and the clinical findings. Elevated TnI levels indicate myocardial damage, but are not specific for ischemic heart disease. Elevated TnI levels are seen in patients with other cardiac conditions (including myocarditis and congestive heartfailure), and slight TnI elevations occur in patients with other conditions, including sepsis, renalfailure, acidosis, acute neurological disease, and persistent tachyarrhythmia.[id number] 20:33: 00 Test Item Value Reference Range Comments PHOSPHORUS (BEAKER) (test wfip=829) 4.8 mg/dL 2.3-4.7 [id number] 20:33:00 Test Item Value Reference Range Comments MAGNESIUM (BEAKER) (test cmma=035) 1.2 mg/dL 1.6-2.6 BASIC METABOLIC [id number] 20:33:00 Test Item Value Reference Range Comments SODIUM (BEAKER) (test 140 meq/L 136-145 fghy=588) POTASSIUM (BEAKER) (test 4.3 meq/L 3.5-5.1 milp=676) CHLORIDE (BEAKER) (test 105 meq/L 98-107 uvbp=830) CO2 (BEAKER) (test 21 meq/L 22-29 gnom=434) BLOOD UREA NITROGEN 19 mg/dL 7-21 (BEAKER) (test tiap=630) CREATININE (BEAKER) (test 1.33 mg/dL 0.57-1.25 prmx=638) GLUCOSE RANDOM (BEAKER) 217 mg/dL 70-105 (test ofyo=414) CALCIUM (BEAKER) (test 8.5 mg/dL 8.4-10.2 unli=458) EGFR (BEAKER) (test 52 mL/min/1.73 sq m ESTIMATED GFR IS NOT pugp=1398) ACCURATE CREATININE CLEARANCE IN PREDICTING GLOMERULAR FILTRATION RATE. ESTIMATED GFR IS NOT APPLICABLE FOR DIALYSIS PATIENTS. POCT-GLUCOSE [id number] 14:03:00 Test Item Value Reference Range Comments POC-GLUCOSE METER (BEAKER) 161 mg/dL 70-110 TESTED AT [address] (test ckhw=9098) [facility] [address] POCT-GLUCOSE [id number] 08:41:00 Test Item Value Reference Range Comments POC-GLUCOSE METER (BEAKER) 134 mg/dL 70-110 TESTED AT [address] (test nqqd=2549) [facility] [address] CBC W/PLT COUNT & AUTO [id number] 06:42:00 Test Item Value Reference Range Comments WHITE BLOOD CELL COUNT (BEAKER) (test bkvk=482) 11.7 K/ L 4.0-10.0 RED BLOOD CELL COUNT (BEAKER) (test npzi=118) 4.12 M/ L 4.20-5.80 HEMOGLOBIN (BEAKER) (test rabt=158) 12.5 GM/DL 13.0-16.8 HEMATOCRIT (BEAKER) (test kwqt=906) 36.6 % 40.0-50.0 MEAN CORPUSCULAR VOLUME (BEAKER) (test sjjx=709) 88.8 fL 82.0-98.0 MEAN CORPUSCULAR HEMOGLOBIN (BEAKER) (test 30.4 pg 27.0-33.0 rszj=846) MEAN CORPUSCULAR HEMOGLOBIN CONC (BEAKER) (test 34.2 GM/DL 32.0-36.0 zzpl=610) RED CELL DISTRIBUTION WIDTH (BEAKER) (test 13.3 % 10.3-14.2 gndy=970) PLATELET COUNT (BEAKER) (test pqvz=232) 282 K/CU MM 150-430 MEAN PLATELET VOLUME (BEAKER) (test dpcx=033) 7.3 fL 6.5-10.5 NUCLEATED RED BLOOD CELLS (BEAKER) (test 0 /100 WBC 0-0 zxtd=170) NEUTROPHILS RELATIVE PERCENT (BEAKER) (test 83 % wfyz=262) LYMPHOCYTES RELATIVE PERCENT (BEAKER) (test 9 % muny=806) MONOCYTES RELATIVE PERCENT (BEAKER) (test 7 % dhky=988) EOSINOPHILS RELATIVE PERCENT (BEAKER) (test 2 % ssih=392) BASOPHILS RELATIVE PERCENT (BEAKER) (test 0 % xhta=052) NEUTROPHILS ABSOLUTE COUNT (BEAKER) (test 9.75 K/ L 1.80-8.00 opag=104) LYMPHOCYTES ABSOLUTE COUNT (BEAKER) (test 1.03 K/ L 1.48-4.50 vfam=227) MONOCYTES ABSOLUTE COUNT (BEAKER) (test 0.77 K/ L 0.00-1.30 bqyy=244) EOSINOPHILS ABSOLUTE COUNT (BEAKER) (test 0.19 K/ L 0.00-0.50 gsht=009) BASOPHILS ABSOLUTE COUNT (BEAKER) (test 0.00 K/ L 0.00-0.20 uykk=650) 0.00URIC [id number] 06:13:00 Test Item Value Reference Range Comments URIC ACID (BEAKER) (test imkp=454) 3.4 mg/dL 2.6-7.2 COMPREHENSIVE METABOLIC [id number] 06:10:00 Test Item Value Reference Range Comments TOTAL PROTEIN (BEAKER) 5.9 gm/dL 6.0-8.3 (test qfyb=878) ALBUMIN (BEAKER) (test 2.9 g/dL 3.5-5.0 chln=5077) ALKALINE PHOSPHATASE 66 U/L 40-150 (BEAKER) (test wdcg=043) BILIRUBIN TOTAL (BEAKER) 0.9 mg/dL 0.2-1.2 (test fgpz=157) SODIUM (BEAKER) (test 140 meq/L 136-145 yspz=035) POTASSIUM (BEAKER) (test 3.3 meq/L 3.5-5.1 wmbc=967) CHLORIDE (BEAKER) (test 105 meq/L 98-107 pgdl=149) CO2 (BEAKER) (test 27 meq/L 22-29 cjrc=415) BLOOD UREA NITROGEN 16 mg/dL 7-21 (BEAKER) (test rsie=693) CREATININE (BEAKER) (test 1.05 mg/dL 0.57-1.25 xhim=036) GLUCOSE RANDOM (BEAKER) 138 mg/dL 70-105 (test pktq=467) CALCIUM (BEAKER) (test 8.5 mg/dL 8.4-10.2 qzag=431) AST (SGOT) (BEAKER) (test 28 U/L 5-34 tund=896) ALT (SGPT) (BEAKER) (test 20 U/L 6-55 ntaa=198) EGFR (BEAKER) (test 68 mL/min/1.73 sq m ESTIMATED GFR IS NOT yznq=1790) ACCURATE CREATININE CLEARANCE IN PREDICTING GLOMERULAR FILTRATION RATE. ESTIMATED GFR IS NOT APPLICABLE FOR DIALYSIS PATIENTS. POCT-GLUCOSE [id number] 05:53:00 Test Item Value Reference Range Comments POC-GLUCOSE METER (BEAKER) 146 mg/dL 70-110 TESTED AT [address] (test ugln=3026) [place] [address] POCT-GLUCOSE [id number] 23:43:00 Test Item Value Reference Range Comments POC-GLUCOSE METER (BEAKER) 136 mg/dL 70-110 TESTED AT [address] (test rxcw=0710) [place] [address] [id number] 19:18:00 Test Item Value Reference Range Comments MAGNESIUM (BEAKER) (test 1.7 mg/dL 1.6-2.6 Specimen moderately hemolyzed zpil=665) [id number] 19:18:00 Test Item Value Reference Range Comments POTASSIUM (BEAKER) (test 3.8 meq/L 3.5-5.1 Specimen moderately hemolyzed cllz=074) POCT-GLUCOSE [id number] 17:50:00 Test Item Value Reference Range Comments POC-GLUCOSE METER (BEAKER) 148 mg/dL 70-110 TESTED AT [facility] [address] [facility] (test vlbb=6242) [facility] [address] URIC [id number] 15:41:00 Test Item Value Reference Range Comments URIC ACID (BEAKER) (test tuvv=700) 4.1 mg/dL 2.6-7.2 URINALYSIS W/ [id number] 15:31:00 Test Item Value Reference Range Comments COLOR (BEAKER) (test vfcb=598) Light Yellow CLARITY (BEAKER) (test gjbm=575) Clear SPECIFIC GRAVITY UA (BEAKER) (test 1.006 1.001-1.035 ieen=195) PH UA (BEAKER) (test qpqt=605) 5.0 5.0-8.0 PROTEIN UA (BEAKER) (test msis=971) Negative Negative GLUCOSE UA (BEAKER) (test oznn=875) Negative Negative KETONES UA (BEAKER) (test wiuo=042) Negative Negative BILIRUBIN UA (BEAKER) (test sjgt=107) Negative Negative BLOOD UA (BEAKER) (test zfsc=372) Trace Negative NITRITE UA (BEAKER) (test jxqk=972) Negative Negative LEUKOCYTE ESTERASE UA (BEAKER) (test Negative Negative fplw=751) UROBILINOGEN UA (BEAKER) (test krii=495) 0.2 mg/dL 0.2-1.0 RBC UA (BEAKER) (test jnxr=507) 1 /HPF WBC UA (BEAKER) (test ogxd=348) < /HPF SOURCE(BEAKER) (test fgah=8551) Urine, Clean Catch [id number] 15:15:00 Test Item Value Reference Range Comments RPR SCREEN (BEAKER) (test enij=004) Nonreactive Nonreactive POCT-GLUCOSE [id number] 11:41:00 Test Item Value Reference Range Comments POC-GLUCOSE METER (BEAKER) 259 mg/dL 70-110 TESTED AT [place] [id number] [facility] (test tyqt=4816) [facility] [address] CBC W/PLT COUNT & AUTO [id number] 07:31:00 Test Item Value Reference Range Comments WHITE BLOOD CELL COUNT (BEAKER) (test cnbt=558) 10.6 K/ L 4.0-10.0 RED BLOOD CELL COUNT (BEAKER) (test vutw=535) 4.36 M/ L 4.20-5.80 HEMOGLOBIN (BEAKER) (test cgnk=459) 12.5 GM/DL 13.0-16.8 HEMATOCRIT (BEAKER) (test opsz=657) 38.8 % 40.0-50.0 MEAN CORPUSCULAR VOLUME (BEAKER) (test geka=976) 89.2 fL 82.0-98.0 MEAN CORPUSCULAR HEMOGLOBIN (BEAKER) (test 28.6 pg 27.0-33.0 oabq=054) MEAN CORPUSCULAR HEMOGLOBIN CONC (BEAKER) (test 32.1 GM/DL 32.0-36.0 maed=807) RED CELL DISTRIBUTION WIDTH (BEAKER) (test 13.6 % 10.3-14.2 dhxm=648) PLATELET COUNT (BEAKER) (test qowf=272) 263 K/CU MM 150-430 MEAN PLATELET VOLUME (BEAKER) (test wyqo=975) 7.7 fL 6.5-10.5 NUCLEATED RED BLOOD CELLS (BEAKER) (test 0 /100 WBC 0-0 fxcl=651) NEUTROPHILS RELATIVE PERCENT (BEAKER) (test 81 % myra=318) LYMPHOCYTES RELATIVE PERCENT (BEAKER) (test 9 % pjkk=828) MONOCYTES RELATIVE PERCENT (BEAKER) (test 8 % baoo=390) EOSINOPHILS RELATIVE PERCENT (BEAKER) (test 2 % haoh=044) BASOPHILS RELATIVE PERCENT (BEAKER) (test 0 % hvpn=050) NEUTROPHILS ABSOLUTE COUNT (BEAKER) (test 8.62 K/ L 1.80-8.00 zrpw=574) LYMPHOCYTES ABSOLUTE COUNT (BEAKER) (test 0.94 K/ L 1.48-4.50 xobm=741) MONOCYTES ABSOLUTE COUNT (BEAKER) (test 0.82 K/ L 0.00-1.30 gurb=391) EOSINOPHILS ABSOLUTE COUNT (BEAKER) (test 0.24 K/ L 0.00-0.50 zqcv=420) BASOPHILS ABSOLUTE COUNT (BEAKER) (test 0.01 K/ L 0.00-0.20 yhkc=761) 0.00TSH/FREE T4 IF [id number] 07:26:00 Test Item Value Reference Range Comments THYROID STIMULATING HORMONE (BEAKER) (test 2.53 uIU/mL 0.35-4.94 hgko=453) VITAMIN B12 AND [id number] 07:26:00 Test Item Value Reference Range Comments VITAMIN B12 (BEAKER) (test tccs=990) 1408 pg/mL 213-816 FOLATE (BEAKER) (test oidx=083) 8.4 ng/mL >=7.0 Effective 03/05/2014: Folate Reference Range ChangeNew: >=7.0 Previous: & gt;=[id number] 07:04:00 Test Item Value Reference Range Comments PHOSPHORUS (BEAKER) (test kuut=105) 3.5 mg/dL 2.3-4.7 [id number] 07:04:00 Test Item Value Reference Range Comments MAGNESIUM (BEAKER) (test dixg=531) 1.6 mg/dL 1.6-2.6 LIPID [id number] 07:04:00 Test Item Value Reference Range Comments TRIGLYCERIDES (BEAKER) (test yhya=366) 168 mg/dL CHOLESTEROL (BEAKER) (test duke=023) 75 mg/dL HDL CHOLESTEROL (BEAKER) (test flse=937) 9 mg/dL LDL CHOLESTEROL CALCULATED (BEAKER) (test 32 mg/dL vxea=775) Triglyceride Reference Range: Low Risk <150 Borderline 150- 199 High Risk 200-499 Very High Risk >=500Cholesterol Reference Range: Low Risk <200 Borderline 200-239 High Risk > 240HDL Cholesterol Reference Range: Low Risk >=60 High Risk <40LDL Cholesterol Reference Range: Optimal <100 Near Optimal 100-129 Borderline 130-159 High 160-189 Very High >=190HEPATIC FUNCTION [id number] 07:04:00 Test Item Value Reference Range Comments TOTAL PROTEIN (BEAKER) (test belp=412) 5.7 gm/dL 6.0-8.3 ALBUMIN (BEAKER) (test dxyk=0606) 2.8 g/dL 3.5-5.0 BILIRUBIN TOTAL (BEAKER) (test hhtd=431) 0.7 mg/dL 0.2-1.2 BILIRUBIN DIRECT (BEAKER) (test udla=615) 0.3 mg/dL 0.1-0.5 ALKALINE PHOSPHATASE (BEAKER) (test zcdq=483) 66 U/L 40-150 AST (SGOT) (BEAKER) (test jhcx=980) 39 U/L 5-34 ALT (SGPT) (BEAKER) (test tkux=166) 19 U/L 6-55 COMPREHENSIVE METABOLIC [id number] 07:04:00 Test Item Value Reference Range Comments TOTAL PROTEIN (BEAKER) 5.7 gm/dL 6.0-8.3 (test xaor=097) ALBUMIN (BEAKER) (test 2.8 g/dL 3.5-5.0 rruv=4158) ALKALINE PHOSPHATASE 66 U/L 40-150 (BEAKER) (test rugd=500) BILIRUBIN TOTAL (BEAKER) 0.7 mg/dL 0.2-1.2 (test nbrn=739) SODIUM (BEAKER) (test 143 meq/L 136-145 irqx=959) POTASSIUM (BEAKER) (test 3.7 meq/L 3.5-5.1 twlv=051) CHLORIDE (BEAKER) (test 112 meq/L 98-107 ojrf=847) CO2 (BEAKER) (test 21 meq/L 22-29 gxwz=681) BLOOD UREA NITROGEN 20 mg/dL 7-21 (BEAKER) (test fnuc=422) CREATININE (BEAKER) (test 0.97 mg/dL 0.57-1.25 wshi=770) GLUCOSE RANDOM (BEAKER) 139 mg/dL 70-105 (test hyym=552) CALCIUM (BEAKER) (test 8.6 mg/dL 8.4-10.2 jrrj=124) AST (SGOT) (BEAKER) (test 39 U/L 5-34 fjbj=973) ALT (SGPT) (BEAKER) (test 19 U/L 6-55 azde=525) EGFR (BEAKER) (test 74 mL/min/1.73 sq m ESTIMATED GFR IS NOT ohfb=6331) ACCURATE CREATININE CLEARANCE IN PREDICTING GLOMERULAR FILTRATION RATE. ESTIMATED GFR IS NOT APPLICABLE FOR DIALYSIS PATIENTS. POCT-GLUCOSE [id number] 05:20:00 Test Item Value Reference Range Comments POC-GLUCOSE METER (BEAKER) 150 mg/dL 70-110 TESTED AT [facility] [address] [facility] (test pgio=9102) [facility] [address] POCT-GLUCOSE [id number] 23:49:00 Test Item Value Reference Range Comments POC-GLUCOSE METER (BEAKER) 173 mg/dL 70-110 TESTED AT [facility] [address] [facility] (test rtxm=6141) [facility] [address] POCT-GLUCOSE [id number] 12:37:00 Test Item Value Reference Range Comments POC-GLUCOSE METER (BEAKER) 184 mg/dL 70-110 TESTED AT [facility] [address] [facility] (test lnhp=4326) [facility] [address] PLATELET [id number] 08:28:00 Test Item Value Reference Range Comments PLATELET COUNT (BEAKER) (test qrog=868) 221 K/CU MM 150-430 [id number] 07:54:00 Test Item Value Reference Range Comments PHOSPHORUS (BEAKER) (test ydpg=062) 3.9 mg/dL 2.3-4.7 [id number] 07:54:00 Test Item Value Reference Range Comments MAGNESIUM (BEAKER) (test stif=118) 1.5 mg/dL 1.6-2.6 BASIC METABOLIC [id number] 07:54:00 Test Item Value Reference Range Comments SODIUM (BEAKER) (test 141 meq/L 136-145 xhkk=852) POTASSIUM (BEAKER) (test 3.5 meq/L 3.5-5.1 khak=322) CHLORIDE (BEAKER) (test 111 meq/L 98-107 xdae=427) CO2 (BEAKER) (test 21 meq/L 22-29 usjv=956) BLOOD UREA NITROGEN 23 mg/dL 7-21 (BEAKER) (test qijc=123) CREATININE (BEAKER) (test 1.08 mg/dL 0.57-1.25 ouzl=790) GLUCOSE RANDOM (BEAKER) 157 mg/dL 70-105 (test wtrd=787) CALCIUM (BEAKER) (test 8.6 mg/dL 8.4-10.2 ivgf=321) EGFR (BEAKER) (test 66 mL/min/1.73 sq m ESTIMATED GFR IS NOT jybn=8040) ACCURATE CREATININE CLEARANCE IN PREDICTING GLOMERULAR FILTRATION RATE. ESTIMATED GFR IS NOT APPLICABLE FOR DIALYSIS PATIENTS. HEPATIC FUNCTION [id number] 07:54:00 Test Item Value Reference Range Comments TOTAL PROTEIN (BEAKER) (test bsgv=970) 5.6 gm/dL 6.0-8.3 ALBUMIN (BEAKER) (test cxnn=2462) 2.9 g/dL 3.5-5.0 BILIRUBIN TOTAL (BEAKER) (test iikn=811) 0.6 mg/dL 0.2-1.2 BILIRUBIN DIRECT (BEAKER) (test ajox=289) 0.4 mg/dL 0.1-0.5 ALKALINE PHOSPHATASE (BEAKER) (test hbdw=446) 79 U/L 40-150 AST (SGOT) (BEAKER) (test itzy=710) 39 U/L 5-34 ALT (SGPT) (BEAKER) (test iefu=229) 19 U/L 6-55 PROTHROMBIN [id number] 07:36:00 Test Item Value Reference Range Comments PROTIME (BEAKER) (test emtg=316) 16.8 seconds 11.7-14.7 INR (BEAKER) (test xssj=250) 1.4 <=5.9 RECOMMENDED COUMADIN/WARFARIN INR THERAPY RANGESSTANDARD DOSE: 2.0 - 3.0 Includes: PROPHYLAXIS forvenous thrombosis, systemic embolization; TREATMENT for venous thrombosis and/or pulmonary embolus.HIGH RISK: Target INR is 2.5-3.5 for patients with mechanical heart valves.POCT-GLUCOSE [id number] 06:26:00 Test Item Value Reference Range Comments POC-GLUCOSE METER (BEAKER) 176 mg/dL 70-110 TESTED AT [facility] [address] [facility] (test ckge=9097) [facility] [address] URINALYSIS W/ [id number] 04:53:00 Test Item Value Reference Range Comments COLOR (BEAKER) (test pnnu=853) Yellow CLARITY (BEAKER) (test rdku=841) Clear SPECIFIC GRAVITY UA (BEAKER) (test jyys=466) 1.014 1.001-1.035 PH UA (BEAKER) (test nwvv=037) 5.5 5.0-8.0 PROTEIN UA (BEAKER) (test oxdd=484) Negative Negative GLUCOSE UA (BEAKER) (test lmep=693) Negative Negative KETONES UA (BEAKER) (test vlum=500) Negative Negative BILIRUBIN UA (BEAKER) (test izdu=179) Negative Negative BLOOD UA (BEAKER) (test rixw=516) Small Negative NITRITE UA (BEAKER) (test ugqj=913) Negative Negative LEUKOCYTE ESTERASE UA (BEAKER) (test wouq=817) Negative Negative UROBILINOGEN UA (BEAKER) (test dipb=833) 0.2 mg/dL 0.2-1.0 RBC UA (BEAKER) (test bbnw=070) 2 /HPF WBC UA (BEAKER) (test pvrw=850) < /HPF SQUAMOUS EPITHELIAL (BEAKER) (test uied=753) < /HPF URIC ACID CRYSTALS (BEAKER) (test clkz=0663) Rare AMORPHOUS CRYSTALS (BEAKER) (test hzhh=8365) Rare SOURCE(BEAKER) (test zbze=3500) Urine, Voided POCT-GLUCOSE [id number] 17:07:00 Test Item Value Reference Range Comments POC-GLUCOSE METER (BEAKER) 268 mg/dL 70-110 TESTED AT [facility] [address] [place] [address] (test epfy=8912) [facility] [address] B-TYPE NATRIURETIC FACTOR (BNP)2016-08-19 11:20:00 Test Item Value Reference Range Comments B-TYPE NATRIURETIC PEPTIDE (BEAKER) (test 768 pg/mL 0-100 rcqg=813) PROTHROMBIN [id number] 10:23:00 Test Item Value Reference Range Comments PROTIME (BEAKER) (test lwch=167) 17.6 seconds 11.7-14.7 INR (BEAKER) (test xghi=900) 1.5 <=5.9 RECOMMENDED COUMADIN/WARFARIN INR THERAPY RANGESSTANDARD DOSE: 2.0 - 3.0 Includes: PROPHYLAXIS forvenous thrombosis, systemic embolization; TREATMENT for venous thrombosis and/or pulmonary embolus.HIGH RISK: Target INR is 2.5-3.5 for patients with mechanical heart valves.CBC W/PLT COUNT & AUTO [id number] 06:59:00 Test Item Value Reference Range Comments WHITE BLOOD CELL COUNT (BEAKER) (test qoxp=656) 12.4 K/ L 4.0-10.0 RED BLOOD CELL COUNT (BEAKER) (test jcup=085) 4.09 M/ L 4.20-5.80 HEMOGLOBIN (BEAKER) (test wpek=225) 12.1 GM/DL 13.0-16.8 HEMATOCRIT (BEAKER) (test yqjn=511) 35.9 % 40.0-50.0 MEAN CORPUSCULAR VOLUME (BEAKER) (test xapq=176) 87.7 fL 82.0-98.0 MEAN CORPUSCULAR HEMOGLOBIN (BEAKER) (test 29.6 pg 27.0-33.0 oxsi=399) MEAN CORPUSCULAR HEMOGLOBIN CONC (BEAKER) (test 33.8 GM/DL 32.0-36.0 xaas=539) RED CELL DISTRIBUTION WIDTH (BEAKER) (test 14.5 % 10.3-14.2 niru=603) PLATELET COUNT (BEAKER) (test krsi=715) 178 K/CU MM 150-430 MEAN PLATELET VOLUME (BEAKER) (test phbz=851) 8.6 fL 6.5-10.5 NUCLEATED RED BLOOD CELLS (BEAKER) (test 0 /100 WBC 0-0 ylgc=308) NEUTROPHILS RELATIVE PERCENT (BEAKER) (test 83 % fgjp=773) LYMPHOCYTES RELATIVE PERCENT (BEAKER) (test 6 % niwl=170) MONOCYTES RELATIVE PERCENT (BEAKER) (test 9 % nkyw=446) EOSINOPHILS RELATIVE PERCENT (BEAKER) (test 1 % pbio=417) BASOPHILS RELATIVE PERCENT (BEAKER) (test 0 % ujdh=986) NEUTROPHILS ABSOLUTE COUNT (BEAKER) (test 10.30 K/ L 1.80-8.00 jgul=650) LYMPHOCYTES ABSOLUTE COUNT (BEAKER) (test 0.78 K/ L 1.48-4.50 jeul=719) MONOCYTES ABSOLUTE COUNT (BEAKER) (test 1.13 K/ L 0.00-1.30 fcci=565) EOSINOPHILS ABSOLUTE COUNT (BEAKER) (test 0.17 K/ L 0.00-0.50 ksvf=391) BASOPHILS ABSOLUTE COUNT (BEAKER) (test 0.02 K/ L 0.00-0.20 bueo=289) 0.000.620.000.000.640.000.000.000.00(MANUAL DIFFERENTIAL)2016-08-19 06:59:00 Test Item Value Reference Range Comments TOTAL COUNTED (BEAKER) (test vtey=9267) WBC MORPHOLOGY (BEAKER) (test buzh=212) Normal PLT MORPHOLOGY (BEAKER) (test xgnk=133) Normal RBC MORPHOLOGY (BEAKER) (test qxqm=584) Normal POCT-GLUCOSE [id number] 05:34:00 Test Item Value Reference Range Comments POC-GLUCOSE METER (BEAKER) 171 mg/dL 70-110 TESTED AT [facility] [address] (test eqkr=2063) [place] [address] [id number] 03:56:00 Test Item Value Reference Range Comments MAGNESIUM (BEAKER) (test 1.7 mg/dL 1.6-2.6 Specimen slightly hemolyzed cjam=356) [id number] 03:56:00 Test Item Value Reference Range Comments PHOSPHORUS (BEAKER) (test 3.1 mg/dL 2.3-4.7 Specimen slightly hemolyzed kcem=261) BASIC METABOLIC [id number] 03:56:00 Test Item Value Reference Range Comments SODIUM (BEAKER) (test 138 meq/L 136-145 ukuy=291) POTASSIUM (BEAKER) (test 3.8 meq/L 3.5-5.1 Specimen slightly shnn=649) hemolyzed CHLORIDE (BEAKER) (test 109 meq/L 98-107 nmhb=752) CO2 (BEAKER) (test 18 meq/L 22-29 asqf=111) BLOOD UREA NITROGEN 29 mg/dL 7-21 (BEAKER) (test eyzc=145) CREATININE (BEAKER) (test 1.13 mg/dL 0.57-1.25 Specimen slightly nljp=149) hemolyzed GLUCOSE RANDOM (BEAKER) 153 mg/dL 70-105 (test gqtx=657) CALCIUM (BEAKER) (test 8.3 mg/dL 8.4-10.2 ufmi=002) EGFR (BEAKER) (test 62 mL/min/1.73 sq m ESTIMATED GFR IS NOT puzw=1296) ACCURATE CREATININE CLEARANCE IN PREDICTING GLOMERULAR FILTRATION RATE. ESTIMATED GFR IS NOT APPLICABLE FOR DIALYSIS PATIENTS. HEPATIC FUNCTION [id number] 03:56:00 Test Item Value Reference Range Comments TOTAL PROTEIN (BEAKER) (test 5.5 gm/dL 6.0-8.3 Specimen slightly hemolyzed ekaf=672) ALBUMIN (BEAKER) (test 2.6 g/dL 3.5-5.0 Specimen slightly hemolyzed acxc=2521) BILIRUBIN TOTAL (BEAKER) (test 0.6 mg/dL 0.2-1.2 Specimen slightly hemolyzed nxem=576) BILIRUBIN DIRECT (BEAKER) (test 0.2 mg/dL 0.1-0.5 Specimen slightly hemolyzed nilg=455) ALKALINE PHOSPHATASE (BEAKER) 69 U/L 40-150 (test nnqe=457) AST (SGOT) (BEAKER) (test 29 U/L 5-34 Specimen slightly hemolyzed uqmx=693) ALT (SGPT) (BEAKER) (test 16 U/L 6-55 Specimen slightly hemolyzed uzyt=636) POCT-GLUCOSE [id number] 01:34:00 Test Item Value Reference Range Comments POC-GLUCOSE METER (BEAKER) 174 mg/dL 70-110 TESTED AT [facility] [id number] [facility] (test lktg=3657) [facility] [id number]
[2019-01-01] MEDS ORDERED: KETOROLAC 30 MG/ML INJ ONE (12:57)
[2019-01-01] MEDS ORDERED: NA CHLORIDE 0.9% 2,000 ML ONE (12:57)
[2019-01-01] MEDS ORDERED: NA CHLORIDE 0.9% 500 ML ONE (12:57)
[2019-01-01] MEDS ORDERED: METHYLPREDNISOLONE 125 MG INJ ONE (12:57)
--- NOTE | 2019-01-01 13:02 | RAD REPORT ---
EXAM DESCRIPTION: Darby Single View01/01/2019 12:57 pm CLINICAL HISTORY: Chest pain COMPARISON: 2017 FINDINGS: The lungs appear clear of acute infiltrate. The heart is borderline enlarged IMPRESSION: No acute abnormalities displayed
[2019-01-01 13:05] LABS: Absolute Lymphocytes (CBC) 1.1 K/uL (0.7-4.9); Basophils % 0.4 % (0-1.3); Hematocrit 43.1 % (39.6-49.0); MPV 8.3 fL (7.6-11.3); Protime INR 1.27; RBC Red Blood Cell Count 4.94 M/uL (4.33-5.43)
[2019-01-01 13:29] LABS: Blood Morphology Comment NOT SEEN (NOT SEEN); Platelet Estimate ADEQ; Urine White Blood Cell Casts OK
[2019-01-01 13:35] LABS: Albumin 3.6 g/dL (3.4-5.0); Bilirubin Direct 0.4 mg/dL (0-0.2); Bilirubin Total 1.3 mg/dL (0.2-1.0); Potassium 4.4 mmol/L (3.5-5.1); Protein, Total 7.6 g/dL (6.4-8.2)
[2019-01-01 13:36] LABS: Magnesium 1.6 mg/dL (1.8-2.4); Troponin (Emerg Dept Use Only) 0.02 ng/mL (0.0-0.045)
[2019-01-01] MEDS ORDERED: CEFTRIAXONE/SWI 1gm 1 GM/10 ML SYR ONE (13:36)
--- NOTE | 2019-01-01 15:36 | ER ---
Nurse's Notes [facility] Name: Giovany Heck Age: 83 yrs Sex: Male : 1935 Arrival Date: 01/01/2019 Time: 12:14 Bed 5 Private MD: Yordan Crowder Diagnosis: Acute kidney failure;Hypotension;Tachycardia, unspecified Presentation: 01/01 12:27 Presenting complaint: Patient states: hypotension at MD office; [id number], sweating, sv fatigue, right elbow pain x 3 days. Transition of care: patient was not received from another setting of care. Onset of symptoms was December 30, 2018. Risk Assessment: Do you want to hurt yourself or someone else? Patient reports no desire to harm self or others. Care prior to arrival: None. 12:27 Method Of Arrival: Wheelchair sv 12:27 Acuity: KWAKU 2 sv 14:18 Initial Sepsis Screen: Does the patient meet any 2 criteria? RR > 20 per min. HR > 90 tw2 bpm. Does the patient have a suspected source of infection? Yes: Productive cough/pneumonia. Triage Assessment: 12:27 General: Appears in no apparent distress. uncomfortable, Behavior is calm, cooperative, sv appropriate for age. Neuro: Level of Consciousness is awake, alert, obeys commands. Respiratory: Respiratory effort is even, unlabored, Respiratory pattern is regular, symmetrical. Derm: Skin is diaphoretic, Skin is pale, Skin temperature is cool. 12:54 General: Appears in no apparent distress. comfortable, Behavior is calm, cooperative, bp appropriate for age. Pain: Complains of pain in right elbow. EENT: No deficits noted. Neuro: No deficits noted. Cardiovascular: No deficits noted. Respiratory: No deficits noted. GI: No signs and/or symptoms were reported involving the gastrointestinal system. : No signs and/or symptoms were reported regarding the genitourinary system. Derm: No deficits noted. Musculoskeletal: No deficits noted. Historical: - Allergies: 12:29 No Known Allergies; sv - Home Meds: 14:19 amlodipine 10 mg tab 1 tab once daily [Active]; aspirin 81 mg Oral chew 1 tab once tw2 daily [Active]; atorvastatin 40 mg Oral tab 1 tab once daily [Active]; cetirizine 10 mg Oral tab 1 tab once daily [Active]; clopidogrel 75 mg Oral tab 1 tab once daily [Active]; glipizide 5 mg Oral tab 1 tab 2 times per day [Active]; lisinopril-hydrochlorothiazide 20-12.5 mg Oral tab 1 tab once daily [Active]; magnesium oxide 400 mg Oral tab twice a day [Active]; - PMHx: 12:29 Diabetes - NIDDM; High Cholesterol; Hypertension; Myocardial infarction; sv - PSHx: 12:29 Cholecystectomy; eye surg; sv - Immunization history:: Adult Immunizations. - Social history:: Patient/guardian denies using alcohol, street drugs, The patient lives with family, Smoking status: . - Family history:: not pertinent. - Ebola Screening: : Patient denies travel to an Ebola-affected area in the 21 days before illness onset. Screenin:57 Abuse screen: Denies threats or abuse. Denies injuries from another. Nutritional bp screening: No deficits noted. Tuberculosis screening: No symptoms or risk factors identified. Fall Risk None identified. Assessment: 12:55 General: SEE TRIAGE NOTE. bp 13:30 Reassessment: Patient appears in no apparent distress at this time. Patient denies pain tw2 at this time. Patient states feeling better. 14:17 Reassessment: Patient appears in no apparent distress at this time. Patient and/or tw2 family updated on plan of care and expected duration. Pain level reassessed. Patient is alert, oriented x 3, equal unlabored respirations, skin warm/dry/pink. 15:41 Reassessment: Patient appears in no apparent distress at this time. Patient and/or tw2 family updated on plan of care and expected duration. Pain level reassessed. Patient is alert, oriented x 3, equal unlabored respirations, skin warm/dry/pink. 16:15 Reassessment: Patient appears in no apparent distress at this time. Patient and/or tw2 family updated on plan of care and expected duration. Pain level reassessed. Patient is alert, oriented x 3, equal unlabored respirations, skin warm/dry/pink. 17:15 Reassessment: Patient appears in no apparent distress at this time. Patient and/or tw2 family updated on plan of care and expected duration. Pain level reassessed. Patient is alert, oriented x 3, equal unlabored respirations, skin warm/dry/pink. 18:28 Reassessment: BED ASSIGNED, TRANSPORT POSTPONED FOR SHIFT CHANGE. bp 19:25 General: Appears in no apparent distress. Behavior is calm, cooperative, appropriate ea for age. Pain: Denies pain. Neuro: Level of Consciousness is awake, alert, obeys commands, Oriented to person, place, time, situation. Cardiovascular: Patient's skin is warm and dry. Respiratory: Airway is patent Respiratory effort is even, unlabored, Respiratory pattern is regular, symmetrical. Derm: Skin is pink, warm \T\ dry. Musculoskeletal: Circulation, motion, and sensation intact. 20:51 Reassessment: Patient and/or family updated on plan of care and expected duration. Pain ea level reassessed. Patient is alert, oriented x 3, equal unlabored respirations, skin warm/dry/pink. Pt admitted to second floor, per tech, accompanied by family. Pt tolerating well. Patient denies pain at this time. Patient states feeling better. Vital Signs: 12:29 BP 92 / 35; Pulse 148; Resp 18; Temp 98.1; Pulse Ox 97% ; sv 12:54 Weight 84.37 kg (R); tw2 13:17 BP 84 / 56; Pulse 81; Resp 16; Pulse Ox 97% on R/A; tw2 13:51 BP 96 / 58; Pulse 74; Resp 16; Pulse Ox 100% ; bp 14:17 BP 115 / 63; Pulse 75; Resp 14; Pulse Ox 98% on R/A; tw2 14:45 BP 115 / 65; Pulse 69; Resp 17; Pulse Ox 98% on R/A; tw2 15:41 BP 100 / 59; Pulse 72; Resp 17; Pulse Ox 98% on R/A; tw2 16:15 BP 103 / 50; Pulse 74; Resp 17; Pulse Ox 98% on R/A; tw2 17:15 BP 99 / 50; Pulse 70; Resp 17; Pulse Ox 96% on R/A; tw2 18:28 BP 104 / 60; Pulse 72; Resp 17; Pulse Ox 98% ; bp 19:56 BP 113 / 63; Pulse 72; Resp 18; Pulse Ox 96% ; ea 20:50 BP 105 / 61; Pulse 70; Resp 18; Temp 97.6(TE); Pulse Ox 99% ; ea 13:17 provider aware of BP tw2 ED Course: 12:14 Patient arrived in ED. as 12:15 Yordan Crowder MD is Private Physician. as 12:28 Triage completed. sv 12:31 Luda Belle MD is Attending Physician. ma2 12:39 Bronson Gaston, LOYD is Primary Nurse. bp 12:50 Inserted saline lock: 22 gauge in left antecubital area, using aseptic technique. Blood tw2 collected. 12:52 EKG done, by pre sales technical consultant. reviewed by Kailyn BLANCO. at1 12:55 Arm band placed on. bp 12:57 Patient has correct armband on for positive identification. Bed in low position. Call bp light in reach. Side rails up X2. Adult w/ patient. 13:13 Flu Sent. tw2 13:13 Procalcitonin Sent. tw2 13:13 Lactate Sent. tw2 13:33 Blood Culture Adult (2) Sent. tw2 15:12 Urine collected: urinal, clear \T\ yellow. dh3 15:33 Shaun Mirza MD is Hospitalizing Provider. ma2 19:05 Report given to LOYD Curiel and LOYD Macias. tw2 19:56 No provider procedures requiring assistance completed. Patient admitted, IV remains in ea place. Administered Medications: 13:00 Drug: NS 0.9% 1000 ml Route: IV; Rate: 1 bolus; Site: left antecubital; tw2 14:50 Follow up: Response: No adverse reaction; IV Status: Completed infusion; IV Intake: tw2 1000ml 13:00 Drug: NS 0.9% 250 ml Route: IV; Rate: bolus; Site: right antecubital; bp 13:35 Follow up: IV Intake: 250ml tw2 13:00 Drug: NS 0.9% 1000 ml Route: IV; Rate: 1 bolus; Site: left antecubital; tw2 19:00 Follow up: Response: No adverse reaction; IV Intake: 1000ml ea 13:00 Drug: MethylPrednisoLONE 125 mg Route: IVP; Site: left antecubital; tw2 13:42 Follow up: Response: No adverse reaction tw2 13:02 Drug: TORadol 30 mg Route: IVP; Site: left antecubital; tw2 13:42 Follow up: Response: No adverse reaction; Pain is decreased tw2 13:38 Drug: Rocephin 1 grams Route: IV; Rate: calculated rate; Site: left antecubital; tw2 19:00 Follow up: Response: No adverse reaction; IV Status: Completed infusion ea Point of Care Testing: Blood Glucose: 13:17 Blood Glucose: 188 mg/dL; tw2 Ranges: Intake: 13:35 IV: 250ml; Total: 250ml. tw2 14:50 IV: 1000ml; Total: 1250ml. tw2 19:00 IV: 1000ml; Total: 2250ml. ea Outcome: 15:34 Decision to Hospitalize by Provider. ma2 19:56 Instructed on the need for admit. ea 20:51 Admitted to Med/surg accompanied by tech, room 228, with chart, Report called to ea Receiving nurse on second floor. 20:51 Condition: stable 20:53 Patient left the ED. ea Signatures: Kathy Alba, RN RN Kassnadra Hedrick Amanda, screen room operator EKG Tat1 Della Bernard RN RN tw2 Lourdes Delacruz 3 Mi Mehta RN RN ea Peltier, Brian, RN RN Luda Brown MD MD ma2 Corrections: (The following items were deleted from the chart) 13:18 12:55 Inserted saline lock: 22 gauge in left antecubital area, using aseptic technique. tw2 Blood collected. bp
--- NOTE | 2019-01-01 15:37 | EDPHYS ---
Physician Documentation [facility] Name: Giovany Heck Age: 83 yrs Sex: Male : 1935 Arrival Date: 01/01/2019 Time: 12:14 Bed 5 Private MD: Yordan Crowder ED Physician Luda Belle HPI: 01/01 12:56 This 83 yrs old Male presents to ER via Wheelchair with complaints of Blood ma2 Pressure Problem, Fatigue- Sweating. 12:56 The patient has elevated blood pressure and discovered this low bp. Onset: The ma2 symptoms/episode began/occurred gradually, 1 day(s) ago. Associated signs and symptoms: Pertinent positives: lightheadedness, Pertinent negatives: dyspnea, lightheadedness, nausea, vomiting. Severity of symptoms: At its worst the blood pressure was moderate, in the emergency department the blood pressure is unchanged, improved. The patient has experienced similar episodes in the past. Historical: - Allergies: 12:29 No Known Allergies; sv - Home Meds: 14:19 amlodipine 10 mg tab 1 tab once daily [Active]; aspirin 81 mg Oral chew 1 tab once tw2 daily [Active]; atorvastatin 40 mg Oral tab 1 tab once daily [Active]; cetirizine 10 mg Oral tab 1 tab once daily [Active]; clopidogrel 75 mg Oral tab 1 tab once daily [Active]; glipizide 5 mg Oral tab 1 tab 2 times per day [Active]; lisinopril-hydrochlorothiazide 20-12.5 mg Oral tab 1 tab once daily [Active]; magnesium oxide 400 mg Oral tab twice a day [Active]; - PMHx: 12:29 Diabetes - NIDDM; High Cholesterol; Hypertension; Myocardial infarction; sv - PSHx: 12:29 Cholecystectomy; eye surg; sv - Immunization history:: Adult Immunizations. - Social history:: Patient/guardian denies using alcohol, street drugs, The patient lives with family, Smoking status: . - Family history:: not pertinent. - Ebola Screening: : Patient denies travel to an Ebola-affected area in the 21 days before illness onset. ROS: 12:56 Constitutional: Negative for fever, chills, and weight loss, Cardiovascular: Negative ma2 for chest pain, palpitations, and edema, Respiratory: Negative for shortness of breath, cough, wheezing, and pleuritic chest pain. 12:56 MS/extremity: Positive for right elbow pain , Negative for injury or acute deformity, contusion, erythema, laceration. 12:56 All other systems are negative. Exam: 12:56 Constitutional: This is a well developed, well nourished patient who is awake, alert, ma2 and in no acute distress. Head/Face: Normocephalic, atraumatic. Chest/axilla: Normal chest wall appearance and motion. Nontender with no deformity. No lesions are appreciated. Cardiovascular: Regular rate and rhythm with a normal S1 and S2. No gallops, murmurs, or rubs. Normal PMI, no JVD. No pulse deficits. Respiratory: Lungs have equal breath sounds bilaterally, clear to auscultation and percussion. No rales, rhonchi or wheezes noted. No increased work of breathing, no retractions or nasal flaring. Abdomen/GI: Soft, non-tender, with normal bowel sounds. No distension or tympany. No guarding or rebound. No evidence of tenderness throughout. Back: No spinal tenderness. No costovertebral tenderness. Full range of motion. Skin: Warm, dry with normal turgor. Normal color with no rashes, no lesions, and no evidence of cellulitis. Neuro: Awake and alert, GCS 15, oriented to person, place, time, and situation. Cranial nerves II-XII grossly intact. Motor strength 5/5 in all extremities. Sensory grossly intact. Cerebellar exam normal. Normal gait. 12:56 Musculoskeletal/extremity: Extremities: noted in the right arm and right elbow: pain, ROM: intact in all extremities, Circulation is intact in all extremities. Sensation intact. Compartment Syndrome exam of affected extremity: is normal. Vital Signs: 12:29 BP 92 / 35; Pulse 148; Resp 18; Temp 98.1; Pulse Ox 97% ; sv 12:54 Weight 84.37 kg (R); tw2 13:17 BP 84 / 56; Pulse 81; Resp 16; Pulse Ox 97% on R/A; tw2 13:51 BP 96 / 58; Pulse 74; Resp 16; Pulse Ox 100% ; bp 14:17 BP 115 / 63; Pulse 75; Resp 14; Pulse Ox 98% on R/A; tw2 14:45 BP 115 / 65; Pulse 69; Resp 17; Pulse Ox 98% on R/A; tw2 15:41 BP 100 / 59; Pulse 72; Resp 17; Pulse Ox 98% on R/A; tw2 16:15 BP 103 / 50; Pulse 74; Resp 17; Pulse Ox 98% on R/A; tw2 17:15 BP 99 / 50; Pulse 70; Resp 17; Pulse Ox 96% on R/A; tw2 18:28 BP 104 / 60; Pulse 72; Resp 17; Pulse Ox 98% ; bp 19:56 BP 113 / 63; Pulse 72; Resp 18; Pulse Ox 96% ; ea 20:50 BP 105 / 61; Pulse 70; Resp 18; Temp 97.6(TE); Pulse Ox 99% ; ea 13:17 provider aware of BP tw2 MDM: 12:31 Patient medically screened. ma2 12:56 Differential diagnosis: right elbow pain likely RA flare, elbow with no effusion warmth ma2 or limited rom, thus, septic elbow is unlikely, patient was sent by his pcp for low bp which was 90/30, his pulse was 150 when he got here, both improved to wnl spontaneously. 15:29 Data reviewed: vital signs, nurses notes. Counseling: I had a detailed discussion with [facility] the patient and/or guardian regarding: the historical points, exam findings, and any diagnostic results supporting the discharge/admit diagnosis, the presence of at least one elevated blood pressure reading (>120/80) during this emergency department visit, the need for outpatient follow up. Response to treatment: the patient's symptoms have markedly improved after treatment. 15:32 ED course: discussed with dr. mirza. [facility] 01/01 12:34 Order name: Basic Metabolic Panel [facility] 01/01 12:34 Order name: CBC with Diff [facility] 01/01 12:34 Order name: LFT's [facility] 01/01 12:34 Order name: Magnesium [facility] 01/01 12:34 Order name: NT PRO-BNP [facility] 01/01 12:34 Order name: PT-INR [facility] 01/01 12:34 Order name: Troponin (emerg Dept Use Only) [facility] 01/01 12:34 Order name: Basic Metabolic Panel [facility] 01/01 12:34 Order name: Flu; Complete Time: 13:55 [facility] 01/01 12:34 Order name: CBC with Diff [facility] 01/01 12:34 Order name: LFT's [facility] 01/01 12:34 Order name: Magnesium [facility] 01/01 12:34 Order name: NT PRO-BNP [facility] 01/01 12:34 Order name: PT-INR [facility] 01/01 12:34 Order name: Troponin (emerg Dept Use Only) [facility] 01/01 12:35 Order name: Lactate [facility] 01/01 12:35 Order name: Procalcitonin [facility] 01/01 12:36 Order name: Blood Culture Adult (2) [facility] 01/01 13:07 Order name: Protime (+INR); Complete Time: 13:55 [facility] 01/01 13:09 Order name: CBC with Automated Diff; Complete Time: 13:55 [facility] 01/01 13:31 Order name: CBC Smear Scan; Complete Time: 13:55 [facility] 01/01 13:36 Order name: Basic Metabolic Panel; Complete Time: 13:55 [facility] 01/01 13:36 Order name: Liver (Hepatic) Function; Complete Time: 13:55 [facility] 01/01 13:36 Order name: Troponin (Emerg Dept Use Only); Complete Time: 13:55 [facility] 01/01 13:36 Order name: NT PRO-BNP; Complete Time: 13:55 [facility] 01/01 13:36 Order name: Magnesium; Complete Time: 13:55 [facility] 01/01 13:39 Order name: Procalcitonin; Complete Time: 13:55 [facility] 01/01 13:40 Order name: Lactate; Complete Time: 13:55 [facility] 01/01 15:14 Order name: Urine Dipstick--Ancillary (enter results); Complete Time: 16:39 dc 01/01 19:42 Order name: Lactate Sepsis 2 HR Follow-up [facility] 01/01 12:34 Order name: XRAY Chest (1 view) [facility] 01/01 12:34 Order name: EKG; Complete Time: 12:36 [facility] 01/01 12:34 Order name: Cardiac monitoring; Complete Time: 13:13 [facility] 01/01 12:34 Order name: EKG - Nurse/Tech; Complete Time: 13:13 [facility] 01/01 12:34 Order name: IV Saline Lock; Complete Time: 13:13 [facility] 01/01 12:34 Order name: Labs collected and sent; Complete Time: 13:13 [facility] 01/01 12:34 Order name: O2 Per Protocol; Complete Time: 13:13 [facility] 01/01 12:34 Order name: O2 Sat Monitoring; Complete Time: 13:13 [facility] 01/01 12:34 Order name: XRAY Chest (1 view) [facility] 01/01 12:34 Order name: EKG; Complete Time: 12:37 [facility] 01/01 12:34 Order name: Cardiac monitoring; Complete Time: 13:13 dc01/01 12:34 Order name: EKG - Nurse/Tech; Complete Time: 13:13 [facility] 01/01 12:34 Order name: IV Saline Lock; Complete Time: 13:13 [facility] 01/01 12:34 Order name: Labs collected and sent; Complete Time: 13:13 dc01/01 12:34 Order name: O2 Per Protocol; Complete Time: 13:13 [facility] 01/01 12:34 Order name: O2 Sat Monitoring; Complete Time: 13:13 [facility] 01/01 12:35 Order name: FSBS; Complete Time: 13:17 [facility] 01/01 12:35 Order name: Urine Dipstick-Ancillary (obtain specimen); Complete Time: 15:12 [facility] 01/01 16:19 Order name: RAD; Complete Time: 16:39 [facility] 01/01 17:08 Order name: Diet Ada 1800 Franco; Complete Time: 17:09 tw2 Administered Medications: 13:00 Drug: NS 0.9% 1000 ml Route: IV; Rate: 1 bolus; Site: left antecubital; tw2 14:50 Follow up: Response: No adverse reaction; IV Status: Completed infusion; IV Intake: tw2 1000ml 13:00 Drug: NS 0.9% 250 ml Route: IV; Rate: bolus; Site: right antecubital; bp 13:35 Follow up: IV Intake: 250ml tw2 13:00 Drug: NS 0.9% 1000 ml Route: IV; Rate: 1 bolus; Site: left antecubital; tw2 19:00 Follow up: Response: No adverse reaction; IV Intake: 1000ml ea 13:00 Drug: MethylPrednisoLONE 125 mg Route: IVP; Site: left antecubital; tw2 13:42 Follow up: Response: No adverse reaction tw2 13:02 Drug: TORadol 30 mg Route: IVP; Site: left antecubital; tw2 13:42 Follow up: Response: No adverse reaction; Pain is decreased tw2 13:38 Drug: Rocephin 1 grams Route: IV; Rate: calculated rate; Site: left antecubital; tw2 19:00 Follow up: Response: No adverse reaction; IV Status: Completed infusion ea Point of Care Testing: Blood Glucose: 13:17 Blood Glucose: 188 mg/dL; tw2 Ranges: Critical Glucose Levels:Adult <50 mg/dl or >400 mg/dl <40 mg/dl or >180 mg/dl Disposition: 01/01/19 15:34 Hospitalization ordered by Shaun Mirza for Inpatient Admission. Preliminary diagnosis are Acute kidney failure, Hypotension, Tachycardia, unspecified. - Bed requested for Telemetry/MedSurg (Inpatient). - Status is Inpatient Admission. ea - Condition is Stable. - Problem is new. - Symptoms are unchanged. UTI on Admission? No Signatures: Dispatcher [employer] EDKathy Tamayo RN RN sv Therrien, Shelly, PROFESSOR OF FOREST PLANNING-C PROFESSOR OF [employer]EST PLANNING-Csnw Kandis Sharp ms Della Bernard, RN RN tw2 Mi Mehta RN RN ea Peltier, Brian, RN Luda Sexton MD MD ma2 Corrections: (The following items were deleted from the chart) 18:27 15:34 Hospitalization Ordered by Shaun Mirza MD for Inpatient Admission. Preliminary ms diagnosis is Acute kidney failure; Hypotension; Tachycardia, unspecified. Bed requested for Telemetry/MedSurg (Inpatient). Status is Inpatient Admission. Condition is Stable. Problem is new. Symptoms are unchanged. UTI on Admission? No. ma2 20:53 18:27 01/01/2019 15:34 Hospitalization Ordered by Shaun Mirza MD for Inpatient ea Admission. Preliminary diagnosis is Acute kidney failure; Hypotension; Tachycardia, unspecified. Bed requested for Telemetry/MedSurg (Inpatient). Status is Inpatient Admission. Condition is Stable. Problem is new. Symptoms are unchanged. UTI on Admission? No. ms
[2019-01-01 16:20] LABS: Urine Blood NEGATIVE (NEG); Urine Glucose NEGATIVE (NEG); Urine Protein NEGATIVE (NEG)
--- NOTE | 2019-01-01 16:57 | EKG ---
Test Date: 2019-01-01 Test Time: 12:40:22 Maintenance Supervisor Mechanical: JASE MEASUREMENT RESULTS: Intervals: Rate: 81 IL: 214 QRSD: 138 QT: 416 QTc: 483 [place]: P: 57 IL: 214 QRS: -38 T: 107 INTERPRETIVE STATEMENTS: Sinus rhythm with 1st degree AV block with occasional premature ventricular complexes and premature atrial complexes Left axis deviation Left bundle branch block Abnormal ECG Compared to ECG 06/21/2018 06:27:48 Atrial premature complex(es) now present Ventricular premature complex(es) now present Left-axis deviation now present Sinus arrhythmia no longer present Electronically Signed On 01-01-19 16:55:42 CDT by Stuart Robles
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
[2019-01-01 21:53] VITALS: BMI 28.6
[2019-01-01] MEDS ORDERED: ATORVASTATIN 40 MG TAB PO SCH (22:16)
[2019-01-01] MEDS ORDERED: ONDANSETRON 4 MG/2 ML VIAL IV PRN (22:16)
[2019-01-01] MEDS ORDERED: predniSONE 10 MG TAB PO ONE (22:16)
[2019-01-01] MEDS ORDERED: TRAMADOL HCL 50 MG TAB PO PRN (22:16)
--- NOTE | 2019-01-01 23:01 | RAD REPORT ---
EXAM DESCRIPTION: RAD - Elbow Right 3 View - 01/01/2019 10:54 pm CLINICAL HISTORY: Gouty arthritis COMPARISON: No comparisons FINDINGS: Mild arthritic changes are present at the right elbow joint with mild soft tissue swelling is evident. Small olecranon spur evident. Vascular calcifications noted. No fracture seen.
[2019-01-01] MEDS: NA CHLORIDE 0.9% 1,000 ML IV SCH (23:23)
[2019-01-01] MEDS: INSULIN -REGULAR HUMAN 50 UNIT/0.5 ML ML SQ SCH (23:30)
[2019-01-01 23:40] LABS: C-Reactive Protein 92.2 mg/L (<3.00); Uric Acid 7.2 mg/dL (3.5-7.2)
--- NOTE | 2019-01-02 00:40 | P.PN ---
Subjective Date of Service: 01/02/19 Primary Care Provider: Dr. Resendiz Chief Complaint: Low blood pressure and elevated blood sugar Subjective: Improving, Doing well Physical Examination - Vital Signs Temperature: 97.6 F Blood Pressure: 109/49 Pulse: 51 Respirations: 16 Pulse Ox (%): 97 - Physical Exam General: Alert, In no apparent distress, Oriented x3, Cooperative HEENT: Atraumatic Neck: Supple Respiratory: Clear to auscultation bilaterally, Normal air movement Cardiovascular: Normal pulses, Regular rate/rhythm Gastrointestinal: Normal bowel sounds, Soft and benign, Non-distended, No tenderness, No masses, No rebound, No guarding Musculoskeletal: No erythema, No tenderness, No warmth Neurological: Normal speech, Normal strength at 5/5 x4 extr, Normal tone, Normal affect - Studies Laboratory Data (last 24 hrs) 01/01/19 12:40: PT 14.9 H, INR 1.27 01/01/19 12:40: WBC 13.8 H, Hgb 14.8, Hct 43.1, Plt Count 331 01/01/19 12:40: Sodium 136, Potassium 4.4, BUN 51 H, Creatinine 2.59 H, Glucose 216 H, Magnesium 1.6 L, Total Bilirubin 1.3 H, AST 14 L, ALT 21, Alkaline Phosphatase 89 Microbiology Data (last 24 hrs): 01/01/19 13:00 Nasopharnyx Influenza Type A Antigen Screen - Final 01/01/19 13:00 Nasopharnyx Influenza Type B Antigen Screen - Final Medications List Reviewed: Yes Assessment & Plan Discharge Plan: Home Plan to discharge in: 24 Hours Physician Review Additional Text: Impression: Low blood pressure likely medication related with history of hypertension Acute on chronic renal disease stage 4 likely medication related and dehydration 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 Continue to hold lisinopril/hydrochlorothiazide due to acute renal failure. This may need to be discontinued upon discharge. Will decrease Norvasc to 5 mg daily if blood pressure remains low. Recheck BMP today. If improved will consider discharge later today. Further adjustment in medication may be required with follow up with PCP. Daytime hospitalist team will continue his care. Possible discharge later today with improved blood pressure with medication changes and renal function with IV fluid hydration. Acute on chronic renal disease stage 4 likely medication related and dehydration : Continue with IV hydration. Recheck lab in the morning. Anticipate improvement. Medication changes as recommended above-lisinopril/ hydrochlorothiazide discontinued. Recommend no further use of nonsteroidal anti -inflammatories. Future medications will need to be renally dosed. 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 Patient likely with gouty arthritis. Patient given 1 dose of prednisone. Will continue with allopurinol. Will provide education on gout. Diabetes mellitus type 2, [id number]: Glipizide restarted. Continue sliding scale and monitor Accu-Cheks. Hyperlipidemia: Continue Lipitor 40 mg daily. CAD: Continue Plavix. Will provide DVT prophylaxis-Lovenox. Time Spent Managing Pts Care (In Minutes): 55
[2019-01-02 05:23] VITALS: O2SAT 94
[2019-01-02 06:12] LABS: Absolute Lymphocytes (CBC) 0.6 K/uL (0.7-4.9); Basophils % 0.1 % (0-1.3); Hematocrit 40.3 % (39.6-49.0); Lymphocytes % 5.2 % (15.3-44.8); MPV 8.1 fL (7.6-11.3); RBC Red Blood Cell Count 4.68 M/uL (4.33-5.43)
[2019-01-02 06:15] LABS: Albumin 3.2 g/dL (3.4-5.0); Bilirubin Total 0.6 mg/dL (0.2-1.0); Magnesium 1.6 mg/dL (1.8-2.4); Protein, Total 7.1 g/dL (6.4-8.2)
[2019-01-02] MEDS: INSULIN -REGULAR HUMAN 50 UNIT/0.5 ML ML SQ SCH ×2 (07:30→12:24)
[2019-01-02] MEDS ORDERED: glipiZIDE 5 MG TAB PO SCH (08:00)
[2019-01-02] MEDS ORDERED: MAGNESIUM SULFATE 1 gm IVPB 1 GM/100 ML BAG IV ONE (09:00)
[2019-01-02] MEDS ORDERED: AMLODIPINE 5 MG TAB PO SCH (09:00)
[2019-01-02] MEDS ORDERED: ASPIRIN 81 MG CHEWABLE TABLET PO SCH (09:00)
[2019-01-02] MEDS ORDERED: ALLOPURINOL 100 MG TAB PO SCH (09:00)
[2019-01-02] MEDS ORDERED: CLOPIDOGREL 75 MG TABLET PO SCH (09:00)
[2019-01-02] MEDS: NA CHLORIDE 0.9% 1,000 ML IV SCH (11:22)
[2019-01-02 12:31] VITALS: BP 136/85; TEMP 97.3
--- NOTE | 2019-01-03 13:15 | DS ---
Date of Discharge: 01/02/2019 Code status: Full. Discharge Diagnoses: 1. Acute hypotension, likely related to blood pressure medications and dehydration. 2. Acute on chronic kidney disease stage 4, related to dehydration, prerenal azotemia, improved. 3. Gouty arthritis of the right elbow, improving. 4. Diabetes mellitus type 2, non-insulin requiring. Hemoglobin A1c 6.4%. 5. Mixed hyperlipidemia, on Lipitor. 6. Coronary artery disease, on Plavix and aspirin. 7. Obesity, BMI 33. Hospital Course: The patient is an 83-year-old male, comes in with low blood pressure and elevated blood sugar from PCP's office. Patient was found to have hypotension with blood pressure 90s over 30s. He was thought to be dehydrated and had prerenal azotemia, had some mild white count elevation. His blood cultures remained negative to date. Influenza screen was negative. White blood cell count improved with IV hydration. His CRP and ESR were elevated. Procalcitonin was negative. Lactate was elevated at 3.7, improved with IV fluid hydration. No apparent source of infection. UA was negative. Chest x- ray was clear. The patient improved with IV fluid hydration. Blood pressure improved. His medications were adjusted. Lisinopril/hydrochlorothiazide were held and will be discontinued going forward. His amlodipine was dropped to 5 mg daily. X-ray of the elbow did not show any acute fracture. He did have some gouty arthritis. He was taking allopurinol on as an as-needed basis instead of prophylaxis. He was given prednisone. He was given education regarding treatment for gout. The patient improved. He was able to ambulate without difficulty. His kidney function was also better back to his baseline of about 1.6, currently 1.76. Hemoglobin A1c was 6.4. The patient will need to have repeat BMP in one week to assess kidney function and electrolytes. Followup: The patient to follow up with primary care physician in 2 to 3 days. Return to ER for worsening condition. Avoid NSAIDs. Medications: As per medication reconciliation list. Condition: Stable. Activity: As tolerated. Physical Examination: General: Awake, alert, oriented, no acute distress. Elderly, obese male. CV: S1, S2. Respiratory: Moving air well bilaterally. Abdomen: Soft, nontender, nondistended. Positive bowel sounds. Extremities: No clubbing, cyanosis, or edema. Neurologic: Nonfocal. SA/MODL Voice ID: [id number] Report ID: [id number] MTDD
== END 2019-01-02 17:45 | disposition home or self-care (01) ==
LOC: ER 12:13 → ERHOLD 15:52 → 2ND 20:27
PROVIDERS: ADMIT Family Medicine; ATTEND Family Medicine
DX: I95.2 Hypotension due to drugs (principal); I12.9 Hypertensive chronic kidney disease with stage 1 through stage 4 chronic kidney disease, or unspecified chronic kidney disease; I25.10 Atherosclerotic heart disease of native coronary artery without angina pectoris; E78.5 Hyperlipidemia, unspecified; M10.9 Gout, unspecified; E11.22 Type 2 diabetes mellitus with diabetic chronic kidney disease; N17.9 Acute kidney failure, unspecified; N18.4 Chronic kidney disease, stage 4 (severe); E86.0 Dehydration; E78.2 Mixed hyperlipidemia; E66.9 Obesity, unspecified; Z68.33 Body mass index [BMI] 33.0-33.9, adult
CPT/HCPCS: 96365; 96361; 93005; 87040 ×2; 85025 ×2; 80048; 36415; 83735 ×2; 85610; 82962 ×4; 80076; 84550; 83605 ×2; 85652; 81003; 83036; 84484; 80053; 84145; 83880; 86140; 87804 ×2; 71045; 73080; 94760; 96375; 99285; 96366; J3475; J0696; J7030 ×3; J2930; G0378 ×3; J7512

== ENCOUNTER 2019-01-05 09:10 | Emergency (ER) | payer OTHER ==
--- OUTSIDE RECORDS SUMMARY | 2019-01-05 09:13 | XMS REPORT | Clinical Summary ---
:1935 Author Organization [facility] Address [address] [place] [address] Care Team Providers Name Role Phone Yordan [...] Not on file Results Not on fileafter 01/04/2018 Insurance Payer Benefit Plan / Group Subscriber ID Type Phone Address [employer] xxxxxxxxx Maps Contracted Advance Directives For more information, please contact:[address] [phone] Code Status Date Activated Date Inactivated Comments Full Code 08/18/2016 10:20 PM 08/25/2016 5:19 PM This code status was determined by: Patient
--- OUTSIDE RECORDS SUMMARY | 2019-01-05 09:14 | XMS REPORT ---
:1935 [facility] Address [address] [place] [address] Dr. Montalvo [address] [place] [id number] Care Team Providers Name Role Phone JOANA [...] Value Reference Range Comments CULTURE (BEAKER) (test knki=4653) No acid-fast bacilli isolated in 42 days AFB SMEAR (BEAKER) (test mqao=925) No acid fast bacilli seen FUNGUS CULTURE + [id number] 23:18:00 Test Item Value Reference Range Comments CULTURE (BEAKER) (test No fungus isolated in 28 days zukd=6678) FUNGUS SMEAR (BEAKER) (test No fungi seen wqoh=2247) FUNGUS CULTURE + [id number] 23:18:00 Test Item Value Reference Range Comments CULTURE (BEAKER) (test No fungus isolated in 28 days diht=1301) FUNGUS SMEAR (BEAKER) (test No fungi seen ehsz=7281) ANAEROBIC [id number] 05:12:00 Test Item Value Reference Range Comments CULTURE (BEAKER) (test mwtx=6877) No anaerobes isolated ANAEROBIC [id number] 05:12:00 Test Item Value Reference Range Comments CULTURE (BEAKER) (test xdyx=5615) No anaerobes isolated BLOOD [id number] 15:51:00 Test Item Value Reference Range Comments CULTURE (BEAKER) (test kqms=1291) No growth in 5 days BLOOD [id number] 15:51:00 Test Item Value Reference Range Comments CULTURE (BEAKER) (test ttsc=7068) No growth in 5 days SURGICALLY OBTAINED CULTURE + GRAM [id number] 15:09:00 Test Item Value Reference Range Comments CULTURE (BEAKER) (test No growth rliv=0137) GRAM STAIN RESULT (BEAKER) 1+ WBCs (test mtfh=0596) GRAM STAIN RESULT (BEAKER) 1+ gram positive cocci in (test vagx=74473) chains and pairs SURGICALLY OBTAINED CULTURE + GRAM [id number] 15:07:00 Test Item Value Reference Range Comments CULTURE (BEAKER) (test No growth tfwh=7924) GRAM STAIN RESULT (BEAKER) 1+ WBCs (test olxy=2869) GRAM STAIN RESULT (BEAKER) 1+ gram positive cocci in (test duvj=89471) chains POCT-GLUCOSE [id number] 11:50:00 Test Item Value Reference Range Comments POC-GLUCOSE METER (BEAKER) 226 mg/dL 70-110 TESTED AT [facility] [address] (test imnd=0572) [facility] [address] TISSUE [id number] 09:30:00Surgical Pathology Report Case: [id number] Authorizing Provider: Kwaku Sánchez MD Ordering Provider: Kwaku Sánchez MD OrderingLocation: [facility] 24 [facility] Collected: 08/22/2016 1142 Service Pathologist: Otoniel Larsen [...] NEGATIVE FORCARCINOMA Signing Pathologist Direct Phone Line: [phone] cholecystitisA. GallbladderB. Right hepatic lobe [...] No dysplastic nodules or carcinoma is seen.POCT-GLUCOSE [id number] 08:08:00 Test Item Value Reference Range Comments POC-GLUCOSE METER (BEAKER) 142 mg/dL 70-110 TESTED AT [facility] [address] [facility] (test agdr=4094) [facility] [address] URIC [id number] 06:15:00 Test Item Value Reference Range Comments URIC ACID (BEAKER) (test xufp=655) 5.1 mg/dL 2.6-7.2 [id number] 05:37:00 Test Item Value Reference Range Comments PHOSPHORUS (BEAKER) (test vwgy=496) 3.2 mg/dL 2.3-4.7 [id number] 05:37:00 Test Item Value Reference Range Comments MAGNESIUM (BEAKER) (test uzvc=364) 1.7 mg/dL 1.6-2.6 COMPREHENSIVE METABOLIC [id number] 05:37:00 Test Item Value Reference Range Comments TOTAL PROTEIN (BEAKER) 5.9 gm/dL 6.0-8.3 (test jwml=642) ALBUMIN (BEAKER) (test 2.8 g/dL 3.5-5.0 ulxb=1439) ALKALINE PHOSPHATASE 74 U/L 40-150 (BEAKER) (test smec=075) BILIRUBIN TOTAL (BEAKER) 0.5 mg/dL 0.2-1.2 (test kfqr=430) SODIUM (BEAKER) (test 140 meq/L 136-145 anzx=221) POTASSIUM (BEAKER) (test 3.4 meq/L 3.5-5.1 xaum=836) CHLORIDE (BEAKER) (test 105 meq/L 98-107 rswe=654) CO2 (BEAKER) (test 25 meq/L 22-29 oyee=629) BLOOD UREA NITROGEN 19 mg/dL 7-21 (BEAKER) (test dezq=504) CREATININE (BEAKER) (test 1.43 mg/dL 0.57-1.25 jxvn=188) GLUCOSE RANDOM (BEAKER) 134 mg/dL 70-105 (test mdwj=629) CALCIUM (BEAKER) (test 8.7 mg/dL 8.4-10.2 pajz=978) AST (SGOT) (BEAKER) (test 39 U/L 5-34 nbwo=637) ALT (SGPT) (BEAKER) (test 35 U/L 6-55 nwae=444) EGFR (BEAKER) (test 48 mL/min/1.73 sq m ESTIMATED GFR IS NOT ikqr=0378) ACCURATE CREATININE CLEARANCE IN PREDICTING GLOMERULAR FILTRATION RATE. ESTIMATED GFR IS NOT APPLICABLE FOR DIALYSIS PATIENTS. CBC W/PLT COUNT & AUTO [id number] 05:19:00 Test Item Value Reference Range Comments WHITE BLOOD CELL COUNT (BEAKER) (test lxky=421) 12.0 K/ L 4.0-10.0 RED BLOOD CELL COUNT (BEAKER) (test qxhs=085) 4.22 M/ L 4.20-5.80 HEMOGLOBIN (BEAKER) (test ulrz=388) 12.2 GM/DL 13.0-16.8 HEMATOCRIT (BEAKER) (test vycv=858) 37.5 % 40.0-50.0 MEAN CORPUSCULAR VOLUME (BEAKER) (test cwqi=727) 88.9 fL 82.0-98.0 MEAN CORPUSCULAR HEMOGLOBIN (BEAKER) (test 29.0 pg 27.0-33.0 yyeb=935) MEAN CORPUSCULAR HEMOGLOBIN CONC (BEAKER) (test 32.6 GM/DL 32.0-36.0 hups=655) RED CELL DISTRIBUTION WIDTH (BEAKER) (test 13.2 % 10.3-14.2 pgel=706) PLATELET COUNT (BEAKER) (test miqi=561) 379 K/CU MM 150-430 MEAN PLATELET VOLUME (BEAKER) (test bbuo=582) 7.1 fL 6.5-10.5 NUCLEATED RED BLOOD CELLS (BEAKER) (test 0 /100 WBC 0-0 yqbv=908) NEUTROPHILS RELATIVE PERCENT (BEAKER) (test 83 % zppn=909) LYMPHOCYTES RELATIVE PERCENT (BEAKER) (test 9 % intq=970) MONOCYTES RELATIVE PERCENT (BEAKER) (test 5 % awxn=668) EOSINOPHILS RELATIVE PERCENT (BEAKER) (test 3 % kzvr=716) BASOPHILS RELATIVE PERCENT (BEAKER) (test 0 % hijj=027) NEUTROPHILS ABSOLUTE COUNT (BEAKER) (test 9.97 K/ L 1.80-8.00 bjhr=554) LYMPHOCYTES ABSOLUTE COUNT (BEAKER) (test 1.06 K/ L 1.48-4.50 dawf=308) MONOCYTES ABSOLUTE COUNT (BEAKER) (test 0.63 K/ L 0.00-1.30 xkcv=634) EOSINOPHILS ABSOLUTE COUNT (BEAKER) (test 0.31 K/ L 0.00-0.50 iban=543) BASOPHILS ABSOLUTE COUNT (BEAKER) (test 0.03 K/ L 0.00-0.20 ohvx=265) 0.00POCT-GLUCOSE [id number] 21:05:00 Test Item Value Reference Range Comments POC-GLUCOSE METER (BEAKER) 173 mg/dL 70-110 TESTED AT [facility] [address] [facility] (test oyra=3156) [facility] [address] URINALYSIS W/ [id number] 16:26:00 Test Item Value Reference Range Comments COLOR (BEAKER) (test sbtr=404) Light Yellow CLARITY (BEAKER) (test puxg=856) Clear SPECIFIC GRAVITY UA (BEAKER) (test hlit=497) 1.006 1.001-1.035 PH UA (BEAKER) (test esmi=843) 6.0 5.0-8.0 PROTEIN UA (BEAKER) (test zdah=355) Negative Negative GLUCOSE UA (BEAKER) (test wcoj=137) Negative Negative KETONES UA (BEAKER) (test etcf=435) Negative Negative BILIRUBIN UA (BEAKER) (test dngt=998) Negative Negative BLOOD UA (BEAKER) (test ebuy=740) Negative Negative NITRITE UA (BEAKER) (test xzng=014) Negative Negative LEUKOCYTE ESTERASE UA (BEAKER) (test ohad=771) Negative Negative UROBILINOGEN UA (BEAKER) (test lqar=049) 0.2 mg/dL 0.2-1.0 RBC UA (BEAKER) (test vitl=484) 1 /HPF WBC UA (BEAKER) (test osyb=440) 1 /HPF SOURCE(BEAKER) (test ausw=6608) Urine, Voided CREATININE, RANDOM [id number] 16:09:00 Test Item Value Reference Range Comments CREATININE URINE (BEAKER) (test ufak=298) 32.5 mg/dL Reference Range: No NormalsPROTEIN, RANDOM [id number] 16:09:00 Test Item Value Reference Range Comments PROTEIN, URINE (BEAKER) (test vdyy=4046) 7 mg/dL 0-14 SODIUM, RANDOM [id number] 16:09:00 Test Item Value Reference Range Comments SODIUM URINE (BEAKER) (test ents=295) 83 meq/L Reference Range: No NormalsBASIC METABOLIC [id number] 14:13:00 Test Item Value Reference Range Comments SODIUM (BEAKER) (test 142 meq/L 136-145 pscr=671) POTASSIUM (BEAKER) (test 3.7 meq/L 3.5-5.1 kole=542) CHLORIDE (BEAKER) (test 107 meq/L 98-107 awjv=086) CO2 (BEAKER) (test 26 meq/L 22-29 yfzv=367) BLOOD UREA NITROGEN 21 mg/dL 7-21 (BEAKER) (test wufi=833) CREATININE (BEAKER) (test 1.61 mg/dL 0.57-1.25 npsx=737) GLUCOSE RANDOM (BEAKER) 155 mg/dL 70-105 (test kpio=178) CALCIUM (BEAKER) (test 8.7 mg/dL 8.4-10.2 lojj=334) EGFR (BEAKER) (test 41 mL/min/1.73 sq m ESTIMATED GFR IS NOT omob=6194) ACCURATE CREATININE CLEARANCE IN PREDICTING GLOMERULAR FILTRATION RATE. ESTIMATED GFR IS NOT APPLICABLE FOR DIALYSIS PATIENTS. BLOOD [id number] 13:27:00 Test Item Value Reference Range Comments CULTURE (BEAKER) (test rcge=9916) No growth in 5 days BLOOD [id number] 13:27:00 Test Item Value Reference Range Comments CULTURE (BEAKER) (test xlof=4730) No growth in 5 days POCT-GLUCOSE [id number] 12:25:00 Test Item Value Reference Range Comments POC-GLUCOSE METER (AKER) 203 mg/dL 70-110 TESTED AT [address] (test sgym=2950) [place] [address] POCT-GLUCOSE [id number] 08:54:00 Test Item Value Reference Range Comments POC-GLUCOSE METER (BEAKER) 146 mg/dL 70-110 TESTED AT [address] (test lgny=9304) [place] [address] POCT-GLUCOSE [id number] 05:23:00 Test Item Value Reference Range Comments POC-GLUCOSE METER (BEAKER) 147 mg/dL 70-110 TESTED AT [address] (test bfby=8962) [place] [address] TROPONIN [id number] 04:19:00 Test Item Value Reference Range Comments TROPONIN I (AKER) (test sfom=585) 0.11 ng/mL 0.00-0.03 Effective 03/05/2014: Reference Range [...] Comments WHITE BLOOD CELL COUNT (BEAKER) (test hbrm=092) 16.1 K/ L 4.0-10.0 RED BLOOD CELL COUNT (BEAKER) (test urzw=409) 4.12 M/ L 4.20-5.80 HEMOGLOBIN (BEAKER) (test emfr=321) 12.1 GM/DL 13.0-16.8 HEMATOCRIT (BEAKER) (test oxex=384) 36.0 % 40.0-50.0 MEAN CORPUSCULAR VOLUME (BEAKER) (test nfmd=604) 87.4 fL 82.0-98.0 MEAN CORPUSCULAR HEMOGLOBIN (BEAKER) (test 29.2 pg 27.0-33.0 xhie=517) MEAN CORPUSCULAR HEMOGLOBIN CONC (BEAKER) (test 33.5 GM/DL 32.0-36.0 gpld=851) RED CELL DISTRIBUTION WIDTH (BEAKER) (test 14.3 % 10.3-14.2 fqed=428) PLATELET COUNT (BEAKER) (test groo=436) 390 K/CU MM 150-430 MEAN PLATELET VOLUME (BEAKER) (test mddk=081) 7.0 fL 6.5-10.5 NUCLEATED RED BLOOD CELLS (BEAKER) (test 0 /100 WBC 0-0 wgxm=280) 0.000.540.000.00[id number] 04:11:00 Test Item Value Reference Range Comments PHOSPHORUS (BEAKER) (test elxl=299) 2.1 mg/dL 2.3-4.7 [id number] 04:11:00 Test Item Value Reference Range Comments MAGNESIUM (BEAKER) (test yqqd=714) 2.4 mg/dL 1.6-2.6 BASIC METABOLIC [id number] 04:11:00 Test Item Value Reference Range Comments SODIUM (BEAKER) (test 140 meq/L 136-145 xifu=882) POTASSIUM (BEAKER) (test 3.9 meq/L 3.5-5.1 mfav=950) CHLORIDE (BEAKER) (test 106 meq/L 98-107 jopk=323) CO2 (BEAKER) (test 26 meq/L 22-29 ebay=277) BLOOD UREA NITROGEN 22 mg/dL 7-21 (BEAKER) (test sjyl=610) CREATININE (BEAKER) (test 1.69 mg/dL 0.57-1.25 vroo=809) GLUCOSE RANDOM (BEAKER) 144 mg/dL 70-105 (test xxec=816) CALCIUM (BEAKER) (test 8.5 mg/dL 8.4-10.2 rmwj=327) EGFR (BEAKER) (test 39 mL/min/1.73 sq m ESTIMATED GFR IS NOT lueg=8128) ACCURATE CREATININE CLEARANCE IN PREDICTING GLOMERULAR FILTRATION RATE. ESTIMATED GFR IS NOT APPLICABLE FOR DIALYSIS PATIENTS. POCT-GLUCOSE [id number] 00:24:00 Test Item Value Reference Range Comments POC-GLUCOSE METER (BEAKER) 212 mg/dL 70-110 TESTED AT [address] (test idcj=4217) [place] [address] TROPONIN [id number] 18:52:00 Test Item Value Reference Range Comments TROPONIN I (BEAKER) (test zjzc=414) 0.13 ng/mL 0.00-0.03 Effective 03/05/2014: Reference Range [...] acidosis, acute neurological disease, and persistent tachyarrhythmia.POCT-GLUCOSE [id number] 16:34:00 Test Item Value Reference Range Comments POC-GLUCOSE METER (BEAKER) 228 mg/dL 70-110 TESTED AT [address] (test ahll=9453) [place] [address] SPIN/CONCENTRATION [id number] 16:03:00 Test Item Value Reference Range Comments CONCENTRATION CHARGED (BEAKER) (test ppqw=9826) Done TROPONIN [id number] 15:38:00 Test Item Value Reference Range Comments TROPONIN I (BEAKER) (test fjvo=358) 0.19 ng/mL 0.00-0.03 Effective 03/05/2014: Reference Range [...] renalfailure, acidosis, acute neurological disease, and persistent tachyarrhythmia.[id number] 13:44: 00 Test Item Value Reference Range Comments MAGNESIUM (BEAKER) (test tiwf=592) 1.2 mg/dL 1.6-2.6 POCT-GLUCOSE [id number] 12:40:00 Test Item Value Reference Range Comments POC-GLUCOSE METER (BEAKER) 150 mg/dL 70-110 TESTED AT [facility] [address] [facility] (test rxde=1645) [facility] [address] URINE [id number] 11:31:00 Test Item Value Reference Range Comments CULTURE (BEAKER) (test jafp=1565) No growth TROPONIN [id number] 10:30:00 Test Item Value Reference Range Comments TROPONIN I (BEAKER) (test nnau=071) 0.22 ng/mL 0.00-0.03 Effective 03/05/2014: Reference Range [...] and persistent tachyarrhythmia.CREATINE KINASE (CK), TOTAL AND [id number] 09:38:00 Test Item Value Reference Range Comments CREATINE KINASE TOTAL (BEAKER) (test rhkv=305) 65 U/L 29-200 CREATINE KINASE-MB (BEAKER) (test kwxf=798) 3.8 ng/mL 0.0-6.6 CREATINE KINASE-MB INDEX (BEAKER) (test qpfo=137) 5.8 % Effective 03/05/2014: CK-MB Reference Range ChangeNew: 0.0-6.6 Previous: 0.0- 4.9CK-MB Reference Range:<6.7 Normal6.7-10.0 Borderline>10.0 AbnormalVANCOMYCIN LEVEL, [id number] 09:29:00 Test Item Value Reference Range Comments VANCOMYCIN TROUGH (BEAKER) (test yngn=941) 19.1 ug/mL 10.0-20.0 30 mins prior to 4th dose. Hold next vanc dose if levels greater than 20.POCT- GLUCOSE [id number] 06:24:00 Test Item Value Reference Range Comments POC-GLUCOSE METER (BEAKER) 120 mg/dL 70-110 TESTED AT [facility] [address] [facility] (test lebv=9390) [facility] [address] [id number] 04:31:00 Test Item Value Reference Range Comments PHOSPHORUS (BEAKER) (test yjuy=677) 3.4 mg/dL 2.3-4.7 [id number] 04:31:00 Test Item Value Reference Range Comments MAGNESIUM (BEAKER) (test zige=557) 1.2 mg/dL 1.6-2.6 BASIC METABOLIC [id number] 04:31:00 Test Item Value Reference Range Comments SODIUM (BEAKER) (test 141 meq/L 136-145 uisk=071) POTASSIUM (BEAKER) (test 4.1 meq/L 3.5-5.1 luyw=767) CHLORIDE (BEAKER) (test 108 meq/L 98-107 cyid=129) CO2 (BEAKER) (test 25 meq/L 22-29 kmgb=601) BLOOD UREA NITROGEN 19 mg/dL 7-21 (BEAKER) (test cztu=141) CREATININE (BEAKER) (test 1.12 mg/dL 0.57-1.25 xeog=276) GLUCOSE RANDOM (BEAKER) 132 mg/dL 70-105 (test xiog=692) CALCIUM (BEAKER) (test 8.3 mg/dL 8.4-10.2 fqjo=551) EGFR (BEAKER) (test 63 mL/min/1.73 sq m ESTIMATED GFR IS NOT nzat=2410) ACCURATE CREATININE CLEARANCE IN PREDICTING GLOMERULAR FILTRATION RATE. ESTIMATED GFR IS NOT APPLICABLE FOR DIALYSIS PATIENTS. HEPATIC FUNCTION [id number] 04:31:00 Test Item Value Reference Range Comments TOTAL PROTEIN (BEAKER) (test onvx=794) 5.4 gm/dL 6.0-8.3 ALBUMIN (BEAKER) (test odby=3823) 2.6 g/dL 3.5-5.0 BILIRUBIN TOTAL (BEAKER) (test nine=418) 0.7 mg/dL 0.2-1.2 BILIRUBIN DIRECT (BEAKER) (test qeop=184) 0.4 mg/dL 0.1-0.5 ALKALINE PHOSPHATASE (BEAKER) (test lzym=588) 55 U/L 40-150 AST (SGOT) (BEAKER) (test cyhe=231) 93 U/L 5-34 ALT (SGPT) (BEAKER) (test bevv=251) 43 U/L 6-55 CBC (HEMOGRAM ONLY)2016-08-23 03:52:00 Test Item Value Reference Range Comments WHITE BLOOD CELL COUNT (BEAKER) (test qwdg=154) 16.0 K/ L 4.0-10.0 RED BLOOD CELL COUNT (BEAKER) (test ickb=985) 3.93 M/ L 4.20-5.80 HEMOGLOBIN (BEAKER) (test xkdm=878) 11.9 GM/DL 13.0-16.8 HEMATOCRIT (BEAKER) (test gfks=250) 34.9 % 40.0-50.0 MEAN CORPUSCULAR VOLUME (BEAKER) (test eqvd=563) 88.9 fL 82.0-98.0 MEAN CORPUSCULAR HEMOGLOBIN (BEAKER) (test 30.2 pg 27.0-33.0 uelc=934) MEAN CORPUSCULAR HEMOGLOBIN CONC (BEAKER) (test 34.0 GM/DL 32.0-36.0 msce=159) RED CELL DISTRIBUTION WIDTH (BEAKER) (test 13.5 % 10.3-14.2 qdwk=297) PLATELET COUNT (BEAKER) (test keej=191) 329 K/CU MM 150-430 MEAN PLATELET VOLUME (BEAKER) (test snjn=677) 6.9 fL 6.5-10.5 NUCLEATED RED BLOOD CELLS (BEAKER) (test 0 /100 WBC 0-0 hvmc=460) 0.00BODY FLUID CULTURE + GRAM [id number] 01:04:00 Test Item Value Reference Range Comments CULTURE ([facility]) (test No growth kgae=9244) GRAM STAIN RESULT (AKER) 4+ WBCs (test ryuq=2527) GRAM STAIN RESULT (AKER) <1+ gram positive coccobacilli (test vqpa=29922) CREATINE KINASE (CK), TOTAL AND [id number] 00:15:00 Test Item Value Reference Range Comments CREATINE KINASE TOTAL (BEAKER) (test nkib=687) 59 U/L 29-200 CREATINE KINASE-MB (BEAKER) (test wbix=334) 2.1 ng/mL 0.0-6.6 CREATINE KINASE-MB INDEX (BEAKER) (test kfqn=995) 3.6 % Effective 03/05/2014: CK-MB Reference Range ChangeNew: 0.0-6.6 Previous: 0.0- 4.9CK-MB Reference Range:<6.7 Normal6.7-10.0 Borderline>10.0 AbnormalTROPONIN [id number] 00:15:00 Test Item Value Reference Range Comments TROPONIN I (BEAKER) (test pmya=881) 0.06 ng/mL 0.00-0.03 Effective 03/05/2014: Reference Range [...] acidosis, acute neurological disease, and persistent tachyarrhythmia.POCT-GLUCOSE [id number] 23:43:00 Test Item Value Reference Range Comments POC-GLUCOSE METER ([facility]) 169 mg/dL 70-110 TESTED AT [facility] [address] [facility] (test qlgh=7795) [facility] [address] CBC W/PLT COUNT & AUTO [id number] 20:45:00 Test Item Value Reference Range Comments WHITE BLOOD CELL COUNT (AKER) (test rejo=997) 22.2 K/ L 4.0-10.0 RED BLOOD CELL COUNT (BEAKER) (test ecka=214) 4.25 M/ L 4.20-5.80 HEMOGLOBIN (BEAKER) (test mach=687) 12.7 GM/DL 13.0-16.8 HEMATOCRIT (BEAKER) (test ufdi=261) 37.3 % 40.0-50.0 MEAN CORPUSCULAR VOLUME (BEAKER) (test blii=380) 87.8 fL 82.0-98.0 MEAN CORPUSCULAR HEMOGLOBIN (BEAKER) (test 30.0 pg 27.0-33.0 ufwk=332) MEAN CORPUSCULAR HEMOGLOBIN CONC (BEAKER) (test 34.2 GM/DL 32.0-36.0 gwvw=319) RED CELL DISTRIBUTION WIDTH (BEAKER) (test 14.5 % 10.3-14.2 obyy=320) PLATELET COUNT (BEAKER) (test tbeo=881) 345 K/CU MM 150-430 MEAN PLATELET VOLUME (BEAKER) (test kgdz=560) 7.2 fL 6.5-10.5 NUCLEATED RED BLOOD CELLS (BEAKER) (test 0 /100 WBC 0-0 jwbc=708) 0.000.670.000.000.610.000.000.000.00(MANUAL DIFFERENTIAL)2016-08-22 20:45:00 Test Item Value Reference Range Comments NEUTROPHILS - REL (DIFF) (BEAKER) (test 92 % xpjz=2013) LYMPHOCYTES - REL (DIFF) (BEAKER) (test 2 % gjyg=9521) MONOCYTES - REL (DIFF) (BEAKER) (test gfop=6602) 2 % BANDS - REL (DIFF) (BEAKER) (test cjou=6513) 4 % 0-10 NEUTROPHILS - ABS (DIFF) (BEAKER) (test 20.42 K/ L 1.80-8.00 fpym=2552) LYMPHOCYTES - ABS (DIFF) (BEAKER) (test 0.44 K/ L 1.48-4.50 hnav=6887) MONOCYTES - ABS (DIFF) (BEAKER) (test pujc=6197) 0.44 K/ L 0.00-1.30 BANDS-ABS (DIFF) (BEAKER) (test dsup=4403) 0.9 K/ L 0.0-0.8 TOTAL COUNTED (BEAKER) (test zbil=4557) 100 BANDS + SEGMENTED NEUTROPHILS (BEAKER) (test 21.31 tova=6976) WBC MORPHOLOGY (BEAKER) (test jxyt=534) Normal PLT MORPHOLOGY (BEAKER) (test cwut=968) Normal RBC MORPHOLOGY (BEAKER) (test mrru=791) Normal CREATINE KINASE (CK), TOTAL AND [id number] 20:40:00 Test Item Value Reference Range Comments CREATINE KINASE TOTAL (BEAKER) (test rdgn=680) 65 U/L 29-200 CREATINE KINASE-MB (BEAKER) (test myqx=687) 2.3 ng/mL 0.0-6.6 CREATINE KINASE-MB INDEX (BEAKER) (test dftm=330) 3.5 % Effective 03/05/2014: CK-MB Reference Range ChangeNew: 0.0-6.6 Previous: 0.0- 4.9CK-MB Reference Range:<6.7 Normal6.7-10.0 Borderline>10.0 AbnormalTROPONIN [id number] 20:40:00 Test Item Value Reference Range Comments TROPONIN I (BEAKER) (test cprd=178) 0.02 ng/mL 0.00-0.03 Effective 03/05/2014: Reference Range [...] renalfailure, acidosis, acute neurological disease, and persistent tachyarrhythmia.[id number] 20:33: 00 Test Item Value Reference Range Comments PHOSPHORUS (BEAKER) (test sizr=458) 4.8 mg/dL 2.3-4.7 [id number] 20:33:00 Test Item Value Reference Range Comments MAGNESIUM (BEAKER) (test gelg=850) 1.2 mg/dL 1.6-2.6 BASIC METABOLIC [id number] 20:33:00 Test Item Value Reference Range Comments SODIUM (BEAKER) (test 140 meq/L 136-145 icrp=291) POTASSIUM (BEAKER) (test 4.3 meq/L 3.5-5.1 ilch=388) CHLORIDE (BEAKER) (test 105 meq/L 98-107 ytxk=846) CO2 (BEAKER) (test 21 meq/L 22-29 zbnn=280) BLOOD UREA NITROGEN 19 mg/dL 7-21 (BEAKER) (test yvvh=082) CREATININE (BEAKER) (test 1.33 mg/dL 0.57-1.25 rvue=837) GLUCOSE RANDOM (BEAKER) 217 mg/dL 70-105 (test lnsq=991) CALCIUM (BEAKER) (test 8.5 mg/dL 8.4-10.2 homr=868) EGFR (BEAKER) (test 52 mL/min/1.73 sq m ESTIMATED GFR IS NOT cdxd=6186) ACCURATE CREATININE CLEARANCE IN PREDICTING GLOMERULAR FILTRATION RATE. ESTIMATED GFR IS NOT APPLICABLE FOR DIALYSIS PATIENTS. POCT-GLUCOSE [id number] 14:03:00 Test Item Value Reference Range Comments POC-GLUCOSE METER (BEAKER) 161 mg/dL 70-110 TESTED AT [address] (test vgsx=6559) [facility] [address] POCT-GLUCOSE [id number] 08:41:00 Test Item Value Reference Range Comments POC-GLUCOSE METER (BEAKER) 134 mg/dL 70-110 TESTED AT [address] (test gjrc=5250) [facility] [address] CBC W/PLT COUNT & AUTO [id number] 06:42:00 Test Item Value Reference Range Comments WHITE BLOOD CELL COUNT (BEAKER) (test xdrf=208) 11.7 K/ L 4.0-10.0 RED BLOOD CELL COUNT (BEAKER) (test edqj=518) 4.12 M/ L 4.20-5.80 HEMOGLOBIN (BEAKER) (test diec=236) 12.5 GM/DL 13.0-16.8 HEMATOCRIT (BEAKER) (test tqfj=739) 36.6 % 40.0-50.0 MEAN CORPUSCULAR VOLUME (BEAKER) (test pczb=324) 88.8 fL 82.0-98.0 MEAN CORPUSCULAR HEMOGLOBIN (BEAKER) (test 30.4 pg 27.0-33.0 zwwz=820) MEAN CORPUSCULAR HEMOGLOBIN CONC (BEAKER) (test 34.2 GM/DL 32.0-36.0 asmn=432) RED CELL DISTRIBUTION WIDTH (BEAKER) (test 13.3 % 10.3-14.2 foss=812) PLATELET COUNT (BEAKER) (test fcxv=635) 282 K/CU MM 150-430 MEAN PLATELET VOLUME (BEAKER) (test ipzp=205) 7.3 fL 6.5-10.5 NUCLEATED RED BLOOD CELLS (BEAKER) (test 0 /100 WBC 0-0 tmwj=083) NEUTROPHILS RELATIVE PERCENT (BEAKER) (test 83 % whpf=904) LYMPHOCYTES RELATIVE PERCENT (BEAKER) (test 9 % ebqd=490) MONOCYTES RELATIVE PERCENT (BEAKER) (test 7 % dhxx=819) EOSINOPHILS RELATIVE PERCENT (BEAKER) (test 2 % sjom=212) BASOPHILS RELATIVE PERCENT (BEAKER) (test 0 % thbm=493) NEUTROPHILS ABSOLUTE COUNT (BEAKER) (test 9.75 K/ L 1.80-8.00 nqmt=025) LYMPHOCYTES ABSOLUTE COUNT (BEAKER) (test 1.03 K/ L 1.48-4.50 ilpp=875) MONOCYTES ABSOLUTE COUNT (BEAKER) (test 0.77 K/ L 0.00-1.30 uzuw=453) EOSINOPHILS ABSOLUTE COUNT (BEAKER) (test 0.19 K/ L 0.00-0.50 ymac=966) BASOPHILS ABSOLUTE COUNT (BEAKER) (test 0.00 K/ L 0.00-0.20 qrpi=791) 0.00URIC [id number] 06:13:00 Test Item Value Reference Range Comments URIC ACID (BEAKER) (test zkml=602) 3.4 mg/dL 2.6-7.2 COMPREHENSIVE METABOLIC [id number] 06:10:00 Test Item Value Reference Range Comments TOTAL PROTEIN (BEAKER) 5.9 gm/dL 6.0-8.3 (test nmqd=176) ALBUMIN (BEAKER) (test 2.9 g/dL 3.5-5.0 xhqd=4852) ALKALINE PHOSPHATASE 66 U/L 40-150 (BEAKER) (test xtyw=178) BILIRUBIN TOTAL (BEAKER) 0.9 mg/dL 0.2-1.2 (test hfuk=325) SODIUM (BEAKER) (test 140 meq/L 136-145 wdsg=957) POTASSIUM (BEAKER) (test 3.3 meq/L 3.5-5.1 kcjw=211) CHLORIDE (BEAKER) (test 105 meq/L 98-107 qfjl=959) CO2 (BEAKER) (test 27 meq/L 22-29 noor=863) BLOOD UREA NITROGEN 16 mg/dL 7-21 (BEAKER) (test ptiq=529) CREATININE (BEAKER) (test 1.05 mg/dL 0.57-1.25 tsmz=941) GLUCOSE RANDOM (BEAKER) 138 mg/dL 70-105 (test lkqc=028) CALCIUM (BEAKER) (test 8.5 mg/dL 8.4-10.2 tyus=582) AST (SGOT) (BEAKER) (test 28 U/L 5-34 znma=700) ALT (SGPT) (BEAKER) (test 20 U/L 6-55 nyvk=703) EGFR (BEAKER) (test 68 mL/min/1.73 sq m ESTIMATED GFR IS NOT ouef=8840) ACCURATE CREATININE CLEARANCE IN PREDICTING GLOMERULAR FILTRATION RATE. ESTIMATED GFR IS NOT APPLICABLE FOR DIALYSIS PATIENTS. POCT-GLUCOSE [id number] 05:53:00 Test Item Value Reference Range Comments POC-GLUCOSE METER (BEAKER) 146 mg/dL 70-110 TESTED AT [address] (test mwef=4711) [place] [address] POCT-GLUCOSE [id number] 23:43:00 Test Item Value Reference Range Comments POC-GLUCOSE METER (BEAKER) 136 mg/dL 70-110 TESTED AT [address] (test dtdt=6939) [place] [address] [id number] 19:18:00 Test Item Value Reference Range Comments MAGNESIUM (BEAKER) (test 1.7 mg/dL 1.6-2.6 Specimen moderately hemolyzed thga=096) [id number] 19:18:00 Test Item Value Reference Range Comments POTASSIUM (BEAKER) (test 3.8 meq/L 3.5-5.1 Specimen moderately hemolyzed hklw=741) POCT-GLUCOSE [id number] 17:50:00 Test Item Value Reference Range Comments POC-GLUCOSE METER (BEAKER) 148 mg/dL 70-110 TESTED AT [facility] [address] [facility] (test tevv=3086) [facility] [address] URIC [id number] 15:41:00 Test Item Value Reference Range Comments URIC ACID (BEAKER) (test xbyo=726) 4.1 mg/dL 2.6-7.2 URINALYSIS W/ [id number] 15:31:00 Test Item Value Reference Range Comments COLOR (BEAKER) (test tvof=047) Light Yellow CLARITY (BEAKER) (test nlpi=661) Clear SPECIFIC GRAVITY UA (BEAKER) (test 1.006 1.001-1.035 sqrr=220) PH UA (BEAKER) (test uzbh=796) 5.0 5.0-8.0 PROTEIN UA (BEAKER) (test wmdz=840) Negative Negative GLUCOSE UA (BEAKER) (test urhk=213) Negative Negative KETONES UA (BEAKER) (test rhyf=946) Negative Negative BILIRUBIN UA (BEAKER) (test tsoa=563) Negative Negative BLOOD UA (BEAKER) (test mxjn=237) Trace Negative NITRITE UA (BEAKER) (test stor=449) Negative Negative LEUKOCYTE ESTERASE UA (BEAKER) (test Negative Negative zxsw=921) UROBILINOGEN UA (BEAKER) (test elgh=631) 0.2 mg/dL 0.2-1.0 RBC UA (BEAKER) (test blub=655) 1 /HPF WBC UA (BEAKER) (test klfr=350) < /HPF SOURCE(BEAKER) (test jukc=3124) Urine, Clean Catch [id number] 15:15:00 Test Item Value Reference Range Comments RPR SCREEN (BEAKER) (test knrb=064) Nonreactive Nonreactive POCT-GLUCOSE [id number] 11:41:00 Test Item Value Reference Range Comments POC-GLUCOSE METER (BEAKER) 259 mg/dL 70-110 TESTED AT [place] [id number] [facility] (test gzhb=3304) [facility] [address] CBC W/PLT COUNT & AUTO [id number] 07:31:00 Test Item Value Reference Range Comments WHITE BLOOD CELL COUNT (BEAKER) (test qass=688) 10.6 K/ L 4.0-10.0 RED BLOOD CELL COUNT (BEAKER) (test good=094) 4.36 M/ L 4.20-5.80 HEMOGLOBIN (BEAKER) (test mqik=113) 12.5 GM/DL 13.0-16.8 HEMATOCRIT (BEAKER) (test hype=351) 38.8 % 40.0-50.0 MEAN CORPUSCULAR VOLUME (BEAKER) (test zeio=692) 89.2 fL 82.0-98.0 MEAN CORPUSCULAR HEMOGLOBIN (BEAKER) (test 28.6 pg 27.0-33.0 xbdc=780) MEAN CORPUSCULAR HEMOGLOBIN CONC (BEAKER) (test 32.1 GM/DL 32.0-36.0 tdrs=429) RED CELL DISTRIBUTION WIDTH (BEAKER) (test 13.6 % 10.3-14.2 zjea=474) PLATELET COUNT (BEAKER) (test kcgs=421) 263 K/CU MM 150-430 MEAN PLATELET VOLUME (BEAKER) (test jtdr=831) 7.7 fL 6.5-10.5 NUCLEATED RED BLOOD CELLS (BEAKER) (test 0 /100 WBC 0-0 nauw=706) NEUTROPHILS RELATIVE PERCENT (BEAKER) (test 81 % jjkx=011) LYMPHOCYTES RELATIVE PERCENT (BEAKER) (test 9 % wvor=493) MONOCYTES RELATIVE PERCENT (BEAKER) (test 8 % qkdq=625) EOSINOPHILS RELATIVE PERCENT (BEAKER) (test 2 % qcoq=959) BASOPHILS RELATIVE PERCENT (BEAKER) (test 0 % uemf=216) NEUTROPHILS ABSOLUTE COUNT (BEAKER) (test 8.62 K/ L 1.80-8.00 wqly=429) LYMPHOCYTES ABSOLUTE COUNT (BEAKER) (test 0.94 K/ L 1.48-4.50 psva=036) MONOCYTES ABSOLUTE COUNT (BEAKER) (test 0.82 K/ L 0.00-1.30 swpi=860) EOSINOPHILS ABSOLUTE COUNT (BEAKER) (test 0.24 K/ L 0.00-0.50 htgo=050) BASOPHILS ABSOLUTE COUNT (BEAKER) (test 0.01 K/ L 0.00-0.20 mawz=190) 0.00TSH/FREE T4 IF [id number] 07:26:00 Test Item Value Reference Range Comments THYROID STIMULATING HORMONE (BEAKER) (test 2.53 uIU/mL 0.35-4.94 ilgy=431) VITAMIN B12 AND [id number] 07:26:00 Test Item Value Reference Range Comments VITAMIN B12 (BEAKER) (test awuv=798) 1408 pg/mL 213-816 FOLATE (BEAKER) (test dhnk=528) 8.4 ng/mL >=7.0 Effective 03/05/2014: Folate Reference Range ChangeNew: >=7.0 Previous: & gt;=[id number] 07:04:00 Test Item Value Reference Range Comments PHOSPHORUS (BEAKER) (test goze=843) 3.5 mg/dL 2.3-4.7 [id number] 07:04:00 Test Item Value Reference Range Comments MAGNESIUM (BEAKER) (test wncz=273) 1.6 mg/dL 1.6-2.6 LIPID [id number] 07:04:00 Test Item Value Reference Range Comments TRIGLYCERIDES (BEAKER) (test hypu=190) 168 mg/dL CHOLESTEROL (BEAKER) (test fegq=589) 75 mg/dL HDL CHOLESTEROL (BEAKER) (test zgkr=095) 9 mg/dL LDL CHOLESTEROL CALCULATED (BEAKER) (test 32 mg/dL ryab=907) Triglyceride Reference Range: Low Risk <150 Borderline 150- 199 High Risk 200-499 Very High Risk >=500Cholesterol Reference Range: Low Risk <200 Borderline 200-239 High Risk > 240HDL Cholesterol Reference Range: Low Risk >=60 High Risk <40LDL Cholesterol Reference Range: Optimal <100 Near Optimal 100-129 Borderline 130-159 High 160-189 Very High >=190HEPATIC FUNCTION [id number] 07:04:00 Test Item Value Reference Range Comments TOTAL PROTEIN (BEAKER) (test lreu=710) 5.7 gm/dL 6.0-8.3 ALBUMIN (BEAKER) (test wfyb=1676) 2.8 g/dL 3.5-5.0 BILIRUBIN TOTAL (BEAKER) (test oyhr=391) 0.7 mg/dL 0.2-1.2 BILIRUBIN DIRECT (BEAKER) (test lcsw=688) 0.3 mg/dL 0.1-0.5 ALKALINE PHOSPHATASE (BEAKER) (test wgqn=594) 66 U/L 40-150 AST (SGOT) (BEAKER) (test tbgz=267) 39 U/L 5-34 ALT (SGPT) (BEAKER) (test uudx=877) 19 U/L 6-55 COMPREHENSIVE METABOLIC [id number] 07:04:00 Test Item Value Reference Range Comments TOTAL PROTEIN (BEAKER) 5.7 gm/dL 6.0-8.3 (test gjow=073) ALBUMIN (BEAKER) (test 2.8 g/dL 3.5-5.0 zcuo=8983) ALKALINE PHOSPHATASE 66 U/L 40-150 (BEAKER) (test imyt=126) BILIRUBIN TOTAL (BEAKER) 0.7 mg/dL 0.2-1.2 (test duep=549) SODIUM (BEAKER) (test 143 meq/L 136-145 rbyo=522) POTASSIUM (BEAKER) (test 3.7 meq/L 3.5-5.1 rumh=014) CHLORIDE (BEAKER) (test 112 meq/L 98-107 sizz=495) CO2 (BEAKER) (test 21 meq/L 22-29 kcmg=762) BLOOD UREA NITROGEN 20 mg/dL 7-21 (BEAKER) (test meje=114) CREATININE (BEAKER) (test 0.97 mg/dL 0.57-1.25 jgkd=695) GLUCOSE RANDOM (BEAKER) 139 mg/dL 70-105 (test vhtf=533) CALCIUM (BEAKER) (test 8.6 mg/dL 8.4-10.2 onlg=658) AST (SGOT) (BEAKER) (test 39 U/L 5-34 wgiz=780) ALT (SGPT) (BEAKER) (test 19 U/L 6-55 onug=498) EGFR (BEAKER) (test 74 mL/min/1.73 sq m ESTIMATED GFR IS NOT cbmb=3461) ACCURATE CREATININE CLEARANCE IN PREDICTING GLOMERULAR FILTRATION RATE. ESTIMATED GFR IS NOT APPLICABLE FOR DIALYSIS PATIENTS. POCT-GLUCOSE [id number] 05:20:00 Test Item Value Reference Range Comments POC-GLUCOSE METER (BEAKER) 150 mg/dL 70-110 TESTED AT [facility] [address] [facility] (test wgiu=5940) [facility] [address] POCT-GLUCOSE [id number] 23:49:00 Test Item Value Reference Range Comments POC-GLUCOSE METER (BEAKER) 173 mg/dL 70-110 TESTED AT [facility] [address] [facility] (test jbqw=1204) [facility] [address] POCT-GLUCOSE [id number] 12:37:00 Test Item Value Reference Range Comments POC-GLUCOSE METER (BEAKER) 184 mg/dL 70-110 TESTED AT [facility] [address] [facility] (test vqcf=5718) [facility] [address] PLATELET [id number] 08:28:00 Test Item Value Reference Range Comments PLATELET COUNT (BEAKER) (test ylny=528) 221 K/CU MM 150-430 [id number] 07:54:00 Test Item Value Reference Range Comments PHOSPHORUS (BEAKER) (test amwx=656) 3.9 mg/dL 2.3-4.7 [id number] 07:54:00 Test Item Value Reference Range Comments MAGNESIUM (BEAKER) (test gvdg=193) 1.5 mg/dL 1.6-2.6 BASIC METABOLIC [id number] 07:54:00 Test Item Value Reference Range Comments SODIUM (BEAKER) (test 141 meq/L 136-145 zxnh=454) POTASSIUM (BEAKER) (test 3.5 meq/L 3.5-5.1 gngb=478) CHLORIDE (BEAKER) (test 111 meq/L 98-107 payb=292) CO2 (BEAKER) (test 21 meq/L 22-29 zfcf=309) BLOOD UREA NITROGEN 23 mg/dL 7-21 (BEAKER) (test lubc=211) CREATININE (BEAKER) (test 1.08 mg/dL 0.57-1.25 lozs=842) GLUCOSE RANDOM (BEAKER) 157 mg/dL 70-105 (test utdp=933) CALCIUM (BEAKER) (test 8.6 mg/dL 8.4-10.2 rwws=748) EGFR (BEAKER) (test 66 mL/min/1.73 sq m ESTIMATED GFR IS NOT igzw=8292) ACCURATE CREATININE CLEARANCE IN PREDICTING GLOMERULAR FILTRATION RATE. ESTIMATED GFR IS NOT APPLICABLE FOR DIALYSIS PATIENTS. HEPATIC FUNCTION [id number] 07:54:00 Test Item Value Reference Range Comments TOTAL PROTEIN (BEAKER) (test wkkx=287) 5.6 gm/dL 6.0-8.3 ALBUMIN (BEAKER) (test nsyq=4232) 2.9 g/dL 3.5-5.0 BILIRUBIN TOTAL (BEAKER) (test gceb=110) 0.6 mg/dL 0.2-1.2 BILIRUBIN DIRECT (BEAKER) (test agiz=915) 0.4 mg/dL 0.1-0.5 ALKALINE PHOSPHATASE (BEAKER) (test excs=733) 79 U/L 40-150 AST (SGOT) (BEAKER) (test wzek=966) 39 U/L 5-34 ALT (SGPT) (BEAKER) (test aahm=543) 19 U/L 6-55 PROTHROMBIN [id number] 07:36:00 Test Item Value Reference Range Comments PROTIME (BEAKER) (test syod=094) 16.8 seconds 11.7-14.7 INR (BEAKER) (test ievx=661) 1.4 <=5.9 RECOMMENDED COUMADIN/WARFARIN INR THERAPY RANGESSTANDARD DOSE: 2.0 - 3.0 Includes: PROPHYLAXIS forvenous thrombosis, systemic embolization; TREATMENT for venous thrombosis and/or pulmonary embolus.HIGH RISK: Target INR is 2.5-3.5 for patients with mechanical heart valves.POCT-GLUCOSE [id number] 06:26:00 Test Item Value Reference Range Comments POC-GLUCOSE METER (BEAKER) 176 mg/dL 70-110 TESTED AT [facility] [address] [facility] (test kfzf=6831) [facility] [address] URINALYSIS W/ [id number] 04:53:00 Test Item Value Reference Range Comments COLOR (BEAKER) (test fsgf=911) Yellow CLARITY (BEAKER) (test zjen=732) Clear SPECIFIC GRAVITY UA (BEAKER) (test vqsw=736) 1.014 1.001-1.035 PH UA (BEAKER) (test akpx=711) 5.5 5.0-8.0 PROTEIN UA (BEAKER) (test sjwv=259) Negative Negative GLUCOSE UA (BEAKER) (test mref=598) Negative Negative KETONES UA (BEAKER) (test yimw=966) Negative Negative BILIRUBIN UA (BEAKER) (test cazk=154) Negative Negative BLOOD UA (BEAKER) (test zial=490) Small Negative NITRITE UA (BEAKER) (test bxcy=787) Negative Negative LEUKOCYTE ESTERASE UA (BEAKER) (test jgqf=513) Negative Negative UROBILINOGEN UA (BEAKER) (test zbqh=373) 0.2 mg/dL 0.2-1.0 RBC UA (BEAKER) (test wogp=211) 2 /HPF WBC UA (BEAKER) (test csxv=936) < /HPF SQUAMOUS EPITHELIAL (BEAKER) (test sfhr=431) < /HPF URIC ACID CRYSTALS (BEAKER) (test tcqs=4876) Rare AMORPHOUS CRYSTALS (BEAKER) (test qwww=1153) Rare SOURCE(BEAKER) (test lddv=1977) Urine, Voided POCT-GLUCOSE [id number] 17:07:00 Test Item Value Reference Range Comments POC-GLUCOSE METER (BEAKER) 268 mg/dL 70-110 TESTED AT [facility] [address] [place] [address] (test aruk=4762) [facility] [address] B-TYPE NATRIURETIC FACTOR (BNP)2016-08-19 11:20:00 Test Item Value Reference Range Comments B-TYPE NATRIURETIC PEPTIDE (BEAKER) (test 768 pg/mL 0-100 qnea=135) PROTHROMBIN [id number] 10:23:00 Test Item Value Reference Range Comments PROTIME (BEAKER) (test ntna=078) 17.6 seconds 11.7-14.7 INR (BEAKER) (test bvfs=246) 1.5 <=5.9 RECOMMENDED COUMADIN/WARFARIN INR THERAPY RANGESSTANDARD DOSE: 2.0 - 3.0 Includes: PROPHYLAXIS forvenous thrombosis, systemic embolization; TREATMENT for venous thrombosis and/or pulmonary embolus.HIGH RISK: Target INR is 2.5-3.5 for patients with mechanical heart valves.CBC W/PLT COUNT & AUTO [id number] 06:59:00 Test Item Value Reference Range Comments WHITE BLOOD CELL COUNT (BEAKER) (test lhpl=165) 12.4 K/ L 4.0-10.0 RED BLOOD CELL COUNT (BEAKER) (test wkxg=389) 4.09 M/ L 4.20-5.80 HEMOGLOBIN (BEAKER) (test xtjk=170) 12.1 GM/DL 13.0-16.8 HEMATOCRIT (BEAKER) (test njlh=176) 35.9 % 40.0-50.0 MEAN CORPUSCULAR VOLUME (BEAKER) (test wnma=285) 87.7 fL 82.0-98.0 MEAN CORPUSCULAR HEMOGLOBIN (BEAKER) (test 29.6 pg 27.0-33.0 eapi=167) MEAN CORPUSCULAR HEMOGLOBIN CONC (BEAKER) (test 33.8 GM/DL 32.0-36.0 bjtl=885) RED CELL DISTRIBUTION WIDTH (BEAKER) (test 14.5 % 10.3-14.2 jzyp=211) PLATELET COUNT (BEAKER) (test vtpy=905) 178 K/CU MM 150-430 MEAN PLATELET VOLUME (BEAKER) (test qkvq=159) 8.6 fL 6.5-10.5 NUCLEATED RED BLOOD CELLS (BEAKER) (test 0 /100 WBC 0-0 rerp=496) NEUTROPHILS RELATIVE PERCENT (BEAKER) (test 83 % zdei=357) LYMPHOCYTES RELATIVE PERCENT (BEAKER) (test 6 % nplz=670) MONOCYTES RELATIVE PERCENT (BEAKER) (test 9 % dtgi=469) EOSINOPHILS RELATIVE PERCENT (BEAKER) (test 1 % zzux=366) BASOPHILS RELATIVE PERCENT (BEAKER) (test 0 % rwnx=756) NEUTROPHILS ABSOLUTE COUNT (BEAKER) (test 10.30 K/ L 1.80-8.00 nzoc=043) LYMPHOCYTES ABSOLUTE COUNT (BEAKER) (test 0.78 K/ L 1.48-4.50 qwjd=806) MONOCYTES ABSOLUTE COUNT (BEAKER) (test 1.13 K/ L 0.00-1.30 dvmm=583) EOSINOPHILS ABSOLUTE COUNT (BEAKER) (test 0.17 K/ L 0.00-0.50 cyms=602) BASOPHILS ABSOLUTE COUNT (BEAKER) (test 0.02 K/ L 0.00-0.20 ligx=387) [id number](MANUAL DIFFERENTIAL)2016-08-19 06:59:00 Test Item Value Reference Range Comments TOTAL COUNTED (BEAKER) (test qspc=4682) WBC MORPHOLOGY (BEAKER) (test hstm=513) Normal PLT MORPHOLOGY (BEAKER) (test lazy=589) Normal RBC MORPHOLOGY (BEAKER) (test ozcb=194) Normal POCT-GLUCOSE [id number] 05:34:00 Test Item Value Reference Range Comments POC-GLUCOSE METER (BEAKER) 171 mg/dL 70-110 TESTED AT [facility] [address] (test shbk=2936) [place] [address] [id number] 03:56:00 Test Item Value Reference Range Comments MAGNESIUM (BEAKER) (test 1.7 mg/dL 1.6-2.6 Specimen slightly hemolyzed iiho=206) [id number] 03:56:00 Test Item Value Reference Range Comments PHOSPHORUS (BEAKER) (test 3.1 mg/dL 2.3-4.7 Specimen slightly hemolyzed uyhq=846) BASIC METABOLIC [id number] 03:56:00 Test Item Value Reference Range Comments SODIUM (BEAKER) (test 138 meq/L 136-145 kspq=672) POTASSIUM (BEAKER) (test 3.8 meq/L 3.5-5.1 Specimen slightly gflv=809) hemolyzed CHLORIDE (BEAKER) (test 109 meq/L 98-107 wzzd=263) CO2 (BEAKER) (test 18 meq/L 22-29 ixby=339) BLOOD UREA NITROGEN 29 mg/dL 7-21 (BEAKER) (test mjuv=827) CREATININE (BEAKER) (test 1.13 mg/dL 0.57-1.25 Specimen slightly ovxg=328) hemolyzed GLUCOSE RANDOM (BEAKER) 153 mg/dL 70-105 (test atdc=876) CALCIUM (BEAKER) (test 8.3 mg/dL 8.4-10.2 kgkj=236) EGFR (BEAKER) (test 62 mL/min/1.73 sq m ESTIMATED GFR IS NOT nhie=9952) ACCURATE CREATININE CLEARANCE IN PREDICTING GLOMERULAR FILTRATION RATE. ESTIMATED GFR IS NOT APPLICABLE FOR DIALYSIS PATIENTS. HEPATIC FUNCTION [id number] 03:56:00 Test Item Value Reference Range Comments TOTAL PROTEIN (BEAKER) (test 5.5 gm/dL 6.0-8.3 Specimen slightly hemolyzed cpsi=357) ALBUMIN (BEAKER) (test 2.6 g/dL 3.5-5.0 Specimen slightly hemolyzed auyo=0277) BILIRUBIN TOTAL (BEAKER) (test 0.6 mg/dL 0.2-1.2 Specimen slightly hemolyzed auqo=010) BILIRUBIN DIRECT (BEAKER) (test 0.2 mg/dL 0.1-0.5 Specimen slightly hemolyzed mtib=337) ALKALINE PHOSPHATASE (BEAKER) 69 U/L 40-150 (test vhcu=985) AST (SGOT) (BEAKER) (test 29 U/L 5-34 Specimen slightly hemolyzed qiso=629) ALT (SGPT) (BEAKER) (test 16 U/L 6-55 Specimen slightly hemolyzed vche=516) POCT-GLUCOSE [id number] 01:34:00 Test Item Value Reference Range Comments POC-GLUCOSE METER (BEAKER) 174 mg/dL 70-110 TESTED AT [facility] [address] [facility] (test wlgp=9567) [facility] [address]
[2019-01-05] MEDS ORDERED: HYDROCODONE/APAP 5/325 MG TAB ONE (10:54)
--- NOTE | 2019-01-05 12:36 | RAD REPORT ---
EXAM DESCRIPTION: US - UPPER EXTREMITY VENOUS UNILATE - 01/05/2019 12:27 pm CLINICAL HISTORY: Right arm pain and swelling COMPARISON: None. TECHNIQUE: Real-time sonographic evaluation of the right upper extremity deep venous systems was per formed. FINDINGS: Normal compressibility, flow augmentation, phasic flow and spontaneous flow are identified in the right upper extremity deep venous system. No intraluminal filling defects seen. Internal jugu lar and subclavian veins are normal as well. IMPRESSION: No DVT in the right upper extremity.
--- NOTE | 2019-01-05 12:45 | ER ---
Nurse's Notes [facility] Name: Giovany Heck Age: 83 yrs Sex: Male : 1935 Arrival Date: 01/05/2019 Time: 09:12 Bed 20 Private MD: Diagnosis: Pain in right elbow Presentation: 01/05 09:19 Presenting complaint: Pt's daughter reports pt was discharged from the hospital on tuesday and pt c/o right elbow pain radiating down to right hand that began 2 days ago. Pt's daughter states "he takes allopurinol for his elbow but he would only take it when he had pain and when he was in the hospital recently Dr. Shelton said to take it everyday but it hasn't been helping". Transition of care: patient was not received from another setting of care. Onset of symptoms was December 2018. Risk Assessment: Do you want to hurt yourself or someone else? Patient reports no desire to harm self or others. Initial Sepsis Screen: Does the patient meet any 2 criteria? No. Patient's initial sepsis screen is negative. Does the patient have a suspected source of infection? No. Patient's initial sepsis screen is negative. Care prior to arrival: None. 09:19 Acuity: KWAKU 3 aa5 09:19 Method Of Arrival: Wheelchair aa5 Historical: - Allergies: 09:24 No Known Allergies; aa5 - Home Meds: 10:12 amlodipine 5 mg oral tab once daily [Active]; atorvastatin 40 mg Oral tab 1 tab once aa5 daily [Active]; cetirizine 10 mg Oral tab 1 tab once daily [Active]; clopidogrel 75 mg Oral tab 1 tab once daily [Active]; glipizide 5 mg Oral tab 1 tab 2 times per day [Active]; magnesium oxide 400 mg Oral tab twice a day [Active]; allopurinol 100 mg Oral tab 1 tab once daily [Active]; - PMHx: 09:24 Diabetes - NIDDM; High Cholesterol; Hypertension; Myocardial infarction; aa5 - PSHx: 09:24 Cholecystectomy; eye surg; aa5 - Immunization history:: Flu vaccine is not up to date. - Social history:: Smoking status: Patient/guardian denies using tobacco. - Ebola Screening: : No symptoms or risks identified at this time. Screenin:30 Abuse screen: Denies threats or abuse. Nutritional screening: No deficits noted. aa5 Tuberculosis screening: No symptoms or risk factors identified. Fall Risk None identified. Assessment: 09:30 General: Appears comfortable, Behavior is calm, cooperative. Pain: Complains of pain in aa5 right elbow Pain radiates to down right arm to right hand Pain currently is 7 out of 10 on a pain scale. Quality of pain is described as tender, Is continuous, Aggravated by movement to right arm. Neuro: Level of Consciousness is awake, alert, obeys commands, Oriented to person, place, time, situation. Cardiovascular: Heart tones S1 S2 present Rhythm is regular. Respiratory: Airway is patent Respiratory effort is even, unlabored, Respiratory pattern is regular, symmetrical. GI: No signs and/or symptoms were reported involving the gastrointestinal system. : No signs and/or symptoms were reported regarding the genitourinary system. EENT: No signs and/or symptoms were reported regarding the EENT system. Derm: Skin is pink, warm \\T\\ dry. Musculoskeletal: Range of motion: intact in all extremities, Swelling present in right elbow, right FA, right hand, and right fingers. Redness noted to top of right hand. 09:30 Injury Description: Denies recent fall or injury. aa5 10:57 Reassessment: Patient is alert, oriented x 3, equal unlabored respirations, skin aa5 warm/dry/pink. Pt's daughter remains at bedside. . 11:30 Reassessment: Pt taken to US via stretcher . aa5 11:30 Reassessment: Patient is alert, oriented x 3, equal unlabored respirations, skin aa5 warm/dry/pink. 12:30 Reassessment: Patient is alert, oriented x 3, equal unlabored respirations, skin aa5 warm/dry/pink. Patient states feeling better. Pt back from US . 12:30 Pain: Pain currently is 4 out of 10 on a pain scale. aa5 13:10 Reassessment: Patient is alert, oriented x 3, equal unlabored respirations, skin aa5 warm/dry/pink. Patient states feeling better. 13:10 Pain: Pain currently is 4 out of 10 on a pain scale. aa5 Vital Signs: 09:24 BP 108 / 68; Pulse 78; Resp 16 S; Temp 99.1(O); Pulse Ox 97% on R/A; Weight 79.83 kg aa5 (R); Height 5 ft. 5 in. (165.10 cm) (R); Pain 7/10; 12:30 BP 118 / 70; Pulse 74; Resp 18 S; Pulse Ox 99% on R/A; aa5 13:08 BP 117 / 68; Pulse 75; Resp 16 S; Temp 99.0(O); Pulse Ox 99% on R/A; aa5 09:24 Body Mass Index 29.29 (79.83 kg, 165.10 cm) aa5 ED Course: 09:12 Patient arrived in ED. as 09:19 Arm band placed on. aa5 09:19 Patient has correct armband on for positive identification. aa5 09:23 Triage completed. aa5 09:51 Gypsy Orozco, RN is Primary Nurse. aa5 10:07 Kailyn Schulte FNP-C is PHCP. snw 10:07 John Beltran MD is Attending Physician. snw 12:31 UPPER EXTREMITY VENOUS UNILATE In Process Unspecified. EDMS 12:42 No provider procedures requiring assistance completed. aa5 13:10 Patient did not have IV access during this emergency room visit. aa5 Administered Medications: 10:57 Drug: [place] 5 mg-325 mg 1 tabs Route: PO; aa5 13:10 Follow up: Response: No adverse reaction aa5 Outcome: 12:44 Discharge ordered by . snw 13:10 Discharged to home via wheelchair, with family. aa5 13:10 Condition: improved 13:10 Discharge instructions given to patient, and pt's daughter Instructed on discharge instructions, follow up and referral plans. no drinking with medication, no driving heavy equipment, medication usage, Demonstrated understanding of instructions, follow-up care, medications, Prescriptions given X 1. 13:14 Patient left the ED. aa5 Signatures: Dispatcher [employer] EDMS Kailyn Schulte FNP-C FNP-Kassandra Lugo as Gypsy Orozco, RN RN aa5 Corrections: (The following items were deleted from the chart) 09:27 09:19 Presenting complaint: Pt's daughter reports pt was discharged from the hospital aa5 on Tuesday and pt c/o right elbow pain radiating down to right hand that began 2 days ago. aa5
--- NOTE | 2019-01-05 12:45 | EDPHYS ---
Physician Documentation [facility] Name: Giovany Heck Age: 83 yrs Sex: Male : 1935 Arrival Date: 01/05/2019 Time: 09:12 Bed 20 Private MD: ED Physician John Beltran HPI: 01/05 11:41 This 83 yrs old Male presents to ER via Wheelchair with complaints of Hand snw Pain, Hand Swelling. 11:41 The patient or guardian complains of pain, that is acute. The complaints affect the snw dorsal aspect of right forearm, right wrist, right hand, right elbow and palmar aspect of right forearm. Context: The problem was sustained at an unknown location. Onset: The symptoms/episode began/occurred suddenly, 2 day(s) ago, and became persistent. Associated signs and symptoms: Pertinent positives: swelling. The patient has experienced similar episodes in the past, hx of gout. The patient has been recently seen by a physician: The patient has been recently been admitted at [facility], was discharged earlier this week, for similar complaints, short term steroids but pt had increased renal insufficiency. Historical: - Allergies: 09:24 No Known Allergies; aa5 - Home Meds: 10:12 amlodipine 5 mg oral tab once daily [Active]; atorvastatin 40 mg Oral tab 1 tab once aa5 daily [Active]; cetirizine 10 mg Oral tab 1 tab once daily [Active]; clopidogrel 75 mg Oral tab 1 tab once daily [Active]; glipizide 5 mg Oral tab 1 tab 2 times per day [Active]; magnesium oxide 400 mg Oral tab twice a day [Active]; allopurinol 100 mg Oral tab 1 tab once daily [Active]; - PMHx: 09:24 Diabetes - NIDDM; High Cholesterol; Hypertension; Myocardial infarction; aa5 - PSHx: 09:24 Cholecystectomy; eye surg; aa5 - Immunization history:: Flu vaccine is not up to date. - Social history:: Smoking status: Patient/guardian denies using tobacco. - Ebola Screening: : No symptoms or risks identified at this time. ROS: 11:40 Constitutional: Negative for fever, chills, and weight loss, Eyes: Negative for injury, snw pain, redness, and discharge, ENT: Negative for injury, pain, and discharge, Neck: Negative for injury, pain, and swelling, Cardiovascular: Negative for chest pain, palpitations, and edema, Respiratory: Negative for shortness of breath, cough, wheezing, and pleuritic chest pain, Abdomen/GI: Negative for abdominal pain, nausea, vomiting, diarrhea, and constipation, Back: Negative for injury and pain, : Negative for injury, bleeding, discharge, and swelling, Skin: Negative for injury, rash, and discoloration, Neuro: Negative for headache, weakness, numbness, tingling, and seizure. 11:40 MS/extremity: Positive for pain, swelling, tenderness, of the dorsal aspect of right forearm, right wrist, right hand, right elbow and palmar aspect of right forearm. Exam: 11:39 Constitutional: This is a well developed, well nourished patient who is awake, alert, snw and in no acute distress. Head/Face: Normocephalic, atraumatic. Eyes: Pupils equal round and reactive to light, extra-ocular motions intact. Lids and lashes normal. Conjunctiva and sclera are non-icteric and not injected. Cornea within normal limits. Periorbital areas with no swelling, redness, or edema. ENT: Nares patent. No nasal discharge, no septal abnormalities noted. Tympanic membranes are normal and external auditory canals are clear. Oropharynx with no redness, swelling, or masses, exudates, or evidence of obstruction, uvula midline. Mucous membranes moist. Neck: Trachea midline, no thyromegaly or masses palpated, and no cervical lymphadenopathy. Supple, full range of motion without nuchal rigidity, or vertebral point tenderness. No Meningismus. Chest/axilla: Normal chest wall appearance and motion. Nontender with no deformity. No lesions are appreciated. Cardiovascular: Regular rate and rhythm with a normal S1 and S2. No gallops, murmurs, or rubs. Normal PMI, no JVD. No pulse deficits. Respiratory: Lungs have equal breath sounds bilaterally, clear to auscultation and percussion. No rales, rhonchi or wheezes noted. No increased work of breathing, no retractions or nasal flaring. Abdomen/GI: Soft, non-tender, with normal bowel sounds. No distension or tympany. No guarding or rebound. No evidence of tenderness throughout. Back: No spinal tenderness. No costovertebral tenderness. Full range of motion. Skin: Warm, dry with normal turgor. Normal color with no rashes, no lesions, and no evidence of cellulitis. Neuro: Awake and alert, GCS 15, oriented to person, place, time, and situation. Cranial nerves II-XII grossly intact. Motor strength 5/5 in all extremities. Sensory grossly intact. Cerebellar exam normal. Normal gait. Psych: Awake, alert, with orientation to person, place and time. Behavior, mood, and affect are within normal limits. 11:39 Musculoskeletal/extremity: Extremities: grossly normal except: noted in the dorsal aspect of right forearm, right wrist, right hand and right elbow: pain, swelling, Circulation is intact in all extremities. Sensation intact. Vital Signs: 09:24 BP 108 / 68; Pulse 78; Resp 16 S; Temp 99.1(O); Pulse Ox 97% on R/A; Weight 79.83 kg aa5 (R); Height 5 ft. 5 in. (165.10 cm) (R); Pain 7/10; 12:30 BP 118 / 70; Pulse 74; Resp 18 S; Pulse Ox 99% on R/A; aa5 13:08 BP 117 / 68; Pulse 75; Resp 16 S; Temp 99.0(O); Pulse Ox 99% on R/A; aa5 09:24 Body Mass Index 29.29 (79.83 kg, 165.10 cm) aa5 MDM: 10:08 Patient medically screened. snw 12:49 Data reviewed: vital signs, nurses notes. Data interpreted: Pulse oximetry: on room air snw is 97 %. Interpretation: normal. Counseling: I had a detailed discussion with the patient and/or guardian regarding: the historical points, exam findings, and any diagnostic results supporting the discharge/admit diagnosis, radiology results, the need for outpatient follow up, to return to the emergency department if symptoms worsen or persist or if there are any questions or concerns that arise at home. Special discussion: Based on the history and exam findings, there is no indication for further emergent testing or inpatient evaluation. I discussed with the patient/guardian the need to see the primary care provider for further evaluation of the symptoms. 01/05 11:24 Order name: UPPER EXTREMITY VENOUS UNILATE; Complete Time: 12:43 EDMS Administered Medications: 10:57 Drug: [place] 5 mg-325 mg 1 tabs Route: PO; aa5 13:10 Follow up: Response: No adverse reaction aa5 Disposition: 13:30 Co-signature as Attending Physician, John Beltran MD I agree with the assessment and kdr plan of care. Disposition: 01/05/19 12:44 Discharged to Home. Impression: Pain in right elbow. - Condition is Stable. - Discharge Instructions: Joint Pain, Cryotherapy, Heat Therapy. - Prescriptions for Tylenol- Codeine #3 300-30 mg Oral Tablet - take 2 tablet by ORAL route every 6 hours As needed; 30 tablet. - Medication Reconciliation Form, Thank You Letter, Antibiotic Education, Prescription Opioid Use form. - Follow up: Emergency Department; When: As needed; Reason: Worsening of condition. Follow up: Private Physician; When: 1 - 2 days; Reason: Recheck today's complaints, Continuance of care, Re-evaluation by your physician. Signatures: Dispatcher [employer] [facility] John Beltran MD MD [facility] Kailyn Schulte, WHEEL SETTER-C WHEEL SETTER-[employer] Gypsy Orozco, RN RN aa5 Corrections: (The following items were deleted from the chart) 11:24 10:46 Extremity Venous [email or web address] ordered. [facility] 13:14 12:44 01/05/2019 12:44 Discharged to Home. Impression: Pain in right elbow. Condition aa5 is Stable. Forms are Medication Reconciliation Form, Thank You Letter, Antibiotic Education, Prescription Opioid Use. Follow up: Emergency Department; When: As needed; Reason: Worsening of condition. Follow up: Private Physician; When: 1 - 2 days; Reason: Recheck today's complaints, Continuance of care, Re-evaluation by your physician. snw
[2019-01-05 13:25] VITALS: BP 108/68; TEMP 99.1; O2SAT 97
== END 2019-01-05 13:14 | disposition home or self-care (01) ==
LOC: ER 09:10
DX: M79.631 Pain in right forearm (principal); M25.521 Pain in right elbow; I10 Essential (primary) hypertension; E11.9 Type 2 diabetes mellitus without complications; E78.00 Pure hypercholesterolemia, unspecified; I25.2 Old myocardial infarction
CPT/HCPCS: 82962; 93971; 99283